=== PATIENT | female | born 1940 | race Caucasian/White ===

== ENCOUNTER 2017-07-01 10:40 | Outpatient (CLI) | payer MEDICARE | END 2017-07-01 10:41 | disposition home or self-care (01) | LOC: BICMAMMO 10:40 | PROVIDERS: ATTEND Internal Medicine | DX: Z12.31 Encounter for screening mammogram for malignant neoplasm of breast (principal) | CPT/HCPCS: 77063; 77067 ==

== ENCOUNTER 2017-10-10 11:10 | Day surgery (SDC) | payer MEDICARE ==
[2017-10-10] MEDS ORDERED: Fentanyl 100 MCG/2 ML VIAL ONE ×3 (11:40→14:28)
--- NOTE | 2017-10-10 11:56 | RAD ---
RIGHT ANKLE TWO VIEWS: History: Injury with pain. FINDINGS: There is a displaced mildly comminuted and angulated fracture of the distal fibula. There is also dis location of the tibiotalar joint and there is a fracture of the distal tibia which appears to involve the medial malleolus with displacement. IMPRESSION: Fracture dislocation at the ankle. POS: [facility]
--- NOTE | 2017-10-10 12:22 | RAD ---
RIGHT ANKLE RADIOGRAPH TWO VIEWS: Date: 10-10-17 Provided Clinical History: Post reduction. Comparison: 10-10-17 at 10:52 a.m. FINDINGS: Interval reduction of previously described right tibiotalar dislocation. Tibial and fibular fractures are again demonstrated with improved alignment. Posterior splint material is now present. IMPRESSION: As above. POS: [facility]
[2017-10-10] MEDS ORDERED: CEFAZOLIN/Water 2 GM/20 ML SYRINGE SLOW IVP SCH (13:00)
--- NOTE | 2017-10-10 13:45 | CON ---
DATE OF CONSULTATION: 10/10/2017 REQUESTING PHYSICIAN: Trauma Service. CONSULTING PHYSICIAN: Dr. Kyle Valencia. REASON FOR CONSULTATION: Right ankle dislocation fracture. HISTORY OF PRESENT ILLNESS: This is a 76-year-old female, who presented to the emergency department after a fall at home. The patient states that her leg locked up and she fell. She had an obvious de formity to the right ankle. She does report history of sensory deficits to the right lower extremity following lumbar surgeries. She states that she has trouble with her right lower leg frequently. U dave her arrival to the emergency department, she was noted to have a deformity. X-rays revealed an a nkle fracture with syndesmotic disruption and ankle dislocation. [facility] She was then placed in a posterior short leg with stirrup splint. Trauma was c onsulted for hospital admission and Orthopedic Services has been consulted for her fracture dislocati on. At bedside, the patient states that she is comfortable. She states she has normal sensation los s to her toes. She denies any other injuries at the time of the fall. She states she does live [facility] with her and normally gets around with a cane and sometimes a walker. 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 PAST SURGICAL HISTORY: Significant for cholecystectomy; hysterectomy; cervical spine surgery x2; lum bar spine surgery x2; and bilateral total knee replacements, one was done in 2003 and the other done in 2011. SOCIAL HISTORY: Patient lives with her . She denies any alcohol, tobacco, or illicit drug us e. FAMILY HISTORY: Reviewed and noncontributory. DRUG ALLERGIES: Include CODEINE with a reaction of swollen lips. PHYSICAL EXAMINATION: VITAL SIGNS: Blood pressure 145/88, pulse of 71, respiratory rate of 18, O2 saturation is 92% on mitch m air and temperature of 97.6. GENERAL: The patient is awake, alert, and oriented x3. She is in no acute distress. There is famil y at bedside in the emergency department. She is pleasant and cooperative with exam findings today. HEENT: Head is normocephalic, atraumatic. NECK: Supple. Trachea is midline. Breathing is nonlabored. EXTREMITIES: The right lower extremity was examined. There is a short leg posterior and stirrup spl int application done to the right ankle. The patient is able to actively move her toes. She reports decreased sensation. This is baseline for her. Toes are warm to touch. Capillary refill 2 seconds . SKIN: Free of lesions and rashes at splint edges. There is evidence of prior knee surgery with ante rior midline scars to both knees. Remainder of extremity exam is unremarkable. LABORATORY AND X-RAY FINDINGS: X-rays were reviewed, taken in the emergency department, including 2 views of the right ankle, taken upon presentation to the ER, showed evidence of an ankle fracture dis location, including the medial malleolus and fibula with dislocation. Post-reduction films confirmed improved alignment. There still appears to be some subluxation. There has been a splint applied. ASSESSMENT: Right ankle fracture dislocation. PLAN: Options discussed with the patient and her family today. We would like to proceed with an SHAWANDA F of the right ankle with medial and lateral hardware fixation. The patient will also need a syndesm otic screw. Risks, benefits, and alternatives discussed at length with the patient today. She verba lized understanding. These include but are not limited to, malunion, nonunion, neurovascular comprom ise, and infection. She verbalizes understanding. She is in agreeance with this plan of care. We w ill go forward with surgery this afternoon. Patient is n.p.o. and consent has been signed.
[2017-10-10] MEDS ORDERED: Bupivacaine PF 0.5% 30 ML VIAL ONE (14:10)
--- NOTE | 2017-10-10 14:10 | HP ---
REQUESTING PHYSICIAN: Dr. Zelaya ATTENDING SURGEON: Dr. Landaverde CONSULTATIONS: Orthopedics, Dr. Valencia HISTORY OF PRESENT ILLNESS: The patient is a 76-year-old woman who was walking in her home when she lost her footing and turned real quickly and had immediate pain to her right ankle. The pa tient denies shortness of breath, chest pain, dizziness, lightheadedness, or any syncopal type sympto ms prior to her falling, she just notes that she has a history of weakness of that right lower extrem ity after the spinal surgery for the last several years and it frequently gives out. At this time regi turner twisted her ankle in such a way that she immediately experienced pain and deformity. 911 was notif ied and the patient was brought to the emergency department by ground ambulance where she underwent e valuation and examination and was noted to have a right ankle fracture dislocation. The patient unde rwent a reduction in the emergency department and we were asked to evaluate the patient for admission and obtain orthopedic consultation. The patient denies any loss of consciousness, hitting her head or having any neck pain. ALLERGIES: CODEINE. CURRENT MEDICATIONS: Lyrica, Cymbalta, omeprazole. PAST MEDICAL HISTORY: Right leg peripheral neuropathy, chronic back pain, chronic neck pain, hyperte nsion, gastroesophageal reflux disease. PAST SURGICAL HISTORY: Cholecystectomy, hysterectomy, back surgery x2, neck surgery x2, bilateral kn ee replacements. SOCIAL HISTORY: The patient denies drug, tobacco or alcohol use. She currently lives at home with h er and she ambulates without a walker. FAMILY HISTORY: High blood pressure. REVIEW OF SYSTEMS: A 10 point review of systems was negative unless otherwise stated. PHYSICAL EXAMINATION: VITAL SIGNS: Blood pressure 123/80, pulse 70, respirations 18, oxygen saturation 92% on room air, te mperature is 97.7. GENERAL: The patient is currently resting comfortably in bed in the day stay area of the hospital. She is awake, alert, and oriented x3. [place] coma scale is 15. HEENT: Head is normocephalic. Eyes: Extraocular motion intact. PERRLA bilaterally. Ears are atra umatic without discharge. Nose is atraumatic without discharge. Oropharynx is clear. NECK: Nontender. Trachea is midline. No JVD. CHEST: Clear to auscultation with good inspiratory and expiratory effort. HEART: Regular rate and rhythm. ABDOMEN: Soft, flat, nontender with active bowel sounds. Pelvis is stable. EXTREMITIES: Right lower extremity is currently immobilized in and L and U type splint. She is neur ovascularly intact x4. The patient does note that she has decreased sensation in her right lower ext remity which she says is baseline. Capillary refill is less than 3 seconds. Pulses are 2+. BACK: Nontender and atraumatic. LABORATORY FINDINGS: Labs are pending at this time. RADIOGRAPHS: Views of the right ankle show a fracture dislocation of the right ankle to include frac tures of the distal tibia and fibula. The patient has post-reduction films that show improvement of her dislocation. ASSESSMENT AND PLAN: 1. Status post ground level fall. 2. Status post right ankle fracture dislocation, status post reduction. 3. History of hypertension. 4. History of hyperlipidemia. 5. History of right lower extremity neuropathy. PLAN: The plan will be to admit the patient to the surgical floor, pain control, pulmonary toilet, g astritis and mechanical VTE prophylaxis. The plan for today since the patient has been n.p.o. since this morning is she will undergo her opera tive procedure today according to Dr. Valencia. The patient will begin physical and occupational the rapy tomorrow and we will start VTE prophylaxis, likely tomorrow or as late as the following day. The evaluation, examination, laboratory and radiographic findings were discussed with Dr. Landaverde at th e time of dictation.
[2017-10-10] MEDS ORDERED: CEFAZOLIN/Water 2 GM/20 ML SYRINGE ONE (14:12)
[2017-10-10] MEDS ORDERED: Ketorolac Tromethamine 30 MG/ML VIAL ONE (14:30)
[2017-10-10] MEDS ORDERED: Lidocaine 1% PF 5 ML VIAL ONE (14:30)
[2017-10-10] MEDS ORDERED: Dexamethasone 20 MG/5 ML VIAL ONE (14:30)
[2017-10-10] MEDS ORDERED: Ondansetron HCl/PF 4 MG/2 ML Vial ONE (14:30)
[2017-10-10] MEDS ORDERED: PROPOFOL 200 MG/20 ML VIAL ONE (14:30)
[2017-10-10] MEDS ORDERED: PHENYLEPHRINE-NS 100 MCG/ML 10 ML SYRINGE ONE (14:30)
[2017-10-10] MEDS ORDERED: Midazolam HCl 2 mg/2 ml Vial ONE (14:31)
[2017-10-10] MEDS ORDERED: Ketamine 50 MG/ML VIAL ONE (14:38)
--- NOTE | 2017-10-10 16:06 | RAD ---
RIGHT ANKLE 3 VIEWS: HISTORY: ORIF right ankle. FINDINGS: Three spot fluoroscopic intraoperative images of the right ankle demonstrate interval reduction and i nternal fixation of distal tibial and fibular fractures noted on earlier exam of 11:06 a.m. from the same date. Anatomic alignment has been restored. POS: [facility]
[2017-10-10] MEDS ORDERED: Ondansetron HCl/PF 4 MG/2 ML Vial IVP PRN ×2 (17:03→17:36)
[2017-10-10] MEDS ORDERED: Promethazine HCl 25 MG/ML VIAL SLOW IVP PRN (17:03)
[2017-10-10] MEDS ORDERED: Ketorolac Tromethamine 30 MG/ML VIAL IVP PRN (17:03)
[2017-10-10] MEDS ORDERED: Promethazine HCl 25 MG/ML VIAL IM PRN (17:03)
[2017-10-10] MEDS ORDERED: Dextrose 5% in Water 1,000 ML IV PRN (17:36)
[2017-10-10] MEDS ORDERED: hydrALAZINE 20 MG/ML VIAL SLOW IVP PRN (17:36)
[2017-10-10] MEDS ORDERED: Dextrose 50% Abboject 50 ML SYRINGE SLOW IVP PRN (17:36)
[2017-10-10] MEDS ORDERED: Ondansetron ODT 4 MG TAB PO PRN (17:36)
[2017-10-10] MEDS ORDERED: Sodium Chloride 0.9% 1,000 ML IV SCH (17:36)
--- NOTE | 2017-10-10 17:39 | OP ---
DATE OF PROCEDURE: 10/10/2017 PREOPERATIVE DIAGNOSIS: Right trimalleolar ankle fracture dislocation. POSTOPERATIVE DIAGNOSIS: Right trimalleolar ankle fracture dislocation. SURGICAL PROCEDURE: Open reduction and internal fixation of right medial and lateral malleoli. ANESTHESIA: General. SURGEON: Kyle Valencia M.D. HORSE RIDER: Stephanie Miner PA-C TOURNIQUET TIME: 66 minutes at 300 mmHg. IMPLANTS: Synthes 3.5 mm nonlocking set with a 10-hole one-third tubular plate and a combination of 3.5 mm cortical screws and 4.0 mm cancellous screws. COMPLICATIONS: None. DRAINS: None. SPECIMEN: None. OUTCOME: Near anatomic alignment. INDICATIONS: The patient is a pleasant 76-year-old lady status post trip and fall sustaining a twist ing injury to her right ankle with fracture-dislocation. The dislocation was reduced in the emergenc y room; however, the patient is found to have widely displaced and comminuted lateral malleolus and a displaced medial malleolar fracture. As such, patient is now taken to the operating room for open r eduction and internal fixation. Informed consent has been obtained. I believe all questions have be en answered. PROCEDURE: The patient was brought to the operating room and a timeout performed followed by inducti on of general anesthesia. The patient was then positioned supine on the OR table and a sterile prep and drape was performed of the right lower extremity. The limb was then exsanguinated with Esmarch b andage, tourniquet inflated to 300 mmHg. A lateral incision was made from the tip of the lateral mal leolus heading proximally. After skin was sharply incised, dissection was carried down bluntly to th e underlying fractured fibula and lateral malleolus. Using minimal subperiosteal dissection, the fra cture edges were freed of soft tissue and the fracture hematoma lavaged from the wound. Next, fractu re was reduced and held in place with bone tenaculums. Two interfragmentary compression screws were then applied in standard fashion to secure a large butterfly fragment in place. This was followed by application of a 10-hole 1/3 tubular neutralization plate along the lateral cortex of the distal fib hong. This was held in place with cancellous screws distally and cortical screws proximally getting a natomic alignment. Once fixed, under C-arm guidance, the mortise was stressed and there was found to be no opening of the mortise and felt to be a stable distal tib-fib joint. Next, attention was plac ed medially. A second incision was made centered over the medial malleolus after skin was sharply in cised, dissection was carried down bluntly to the underlying fracture. Again, the fracture edges ever ed of soft tissue and the hematoma lavaged from the wound. The fracture was then reduced and held in place with a bone tenaculum. Next, two 4.5 mm partially threaded cancellous screws were passed from the tip of the medial malleolus obliquely across the fracture and into the distal tibial metaphyseal bone. This resulted in anatomic alignment of the medial malleolus. AP, lateral and mortise x-rays of the ankle were obtained and these were saved in the operating room. Next, 2 wounds were irrigated with normal saline. Then, 10 mL injected of 0.5% Marcaine at the medial wound and 20 at the lateral side. The wound was then closed in layers with 0 Vicryl, 2-0 Vicryl, and pete for the skin. Xer oform gauze, Webril, and fiberglass posterior splint was applied to the ankle. Tourniquet was let do wn with total time of 66 minutes. There were no complications. Patient tolerated the procedure well .
[2017-10-10 19:28] VITALS: BMI 37.8
[2017-10-10] MEDS ORDERED: traMADol HCl 50 MG TAB PO PRN ×2 (20:17)
[2017-10-10] MEDS: Acetaminophen 500 MG TAB PO SCH (20:48)
[2017-10-10] MEDS: Ibuprofen 800 MG TAB PO SCH (20:48)
[2017-10-10] MEDS ORDERED: Famotidine 20 MG TAB PO SCH (21:00)
[2017-10-10] MEDS: CEFAZOLIN/Water 2 GM/20 ML SYRINGE SLOW IVP SCH (21:59)
[2017-10-11] MEDS: Acetaminophen 500 MG TAB PO SCH ×3 (02:40→16:29)
[2017-10-11] MEDS: Ibuprofen 800 MG TAB PO SCH ×2 (04:06→13:20)
[2017-10-11 06:11] LABS: Anion Gap 11 mmol/L (10-20); BUN (Urea Nitrogen) 10 mg/dL (9.8-20.1); Calc. Creatinine Clearance 104 mL/min (70-130); Calcium 9.3 mg/dL (7.8-10.44); Carbon Dioxide 30 mmol/L (23-31); Chloride 103 mmol/L (98-107); Estimated GFR-MDRD 89; Glucose 121 mg/dL (83-110); Magnesium 2.1 mg/dL (1.6-2.6); Phosphorus 4.6 mg/dL (2.3-4.7); Potassium 4.5 mmol/L (3.5-5.1); Sodium 139 mmol/L (136-145)
[2017-10-11 06:13] LABS: #Lymphocytes 1.1 thou/uL (1.20-3.40); #Monocytes 0.5 thou/uL (0.11-0.59); #Neutrophils 6.8 thou/uL (1.40-6.50); %Eosinophils 0.1 % (0.0-10.0); %Lymphocytes 12.7 % (21.0-51.0); %Monocytes 6.1 % (0.0-10.0); Hemoglobin 13.3 g/dL (12.0-16.0); Mean Corpuscular HGB CONC 32.4 g/dL (32.0-36.0); Mean Corpuscular Hemoglobin 29.8 pg (27.0-31.0); Mean Corpuscular Volume 92.2 fL (78.0-98.0); Mean Platelet Volume 7.6 fL (7.4-10.4); Platelet Count 157 thou/uL (130-400); RBC Distribution Width 13.6 % (11.5-14.5); Red Blood Cell (RBC) Count 4.47 mill/uL (4.20-5.40); White Blood Cell (WBC) Count 8.4 thou/uL (4.8-10.8)
[2017-10-11] MEDS: CEFAZOLIN/Water 2 GM/20 ML SYRINGE SLOW IVP SCH (06:23)
[2017-10-11] MEDS ORDERED: Pregabalin 50 MG CAP PO SCH (09:00)
[2017-10-11] MEDS ORDERED: DULoxetine 60 MG CAP PO SCH (09:00)
[2017-10-11 16:17] VITALS: BP 108/69; TEMP 97.9
--- NOTE | 2017-10-12 06:50 | DIS ---
DATE OF ADMISSION: 10/10/2017 DATE OF DISCHARGE: 10/11/2017 ADMISSION DIAGNOSES: 1. Status post ground level fall. 2. Right ankle fracture/dislocation. 3. Acute traumatic pain. 4. History of hypertension. 5. History of hyperlipidemia. 6. History of right lower extremity neuropathy. DISCHARGE DIAGNOSES: 1. Status post ground level fall. 2. Right ankle fracture/dislocation. 3. Acute traumatic pain. 4. History of hypertension. 5. History of hyperlipidemia. 6. History of right lower extremity neuropathy. CONSULTANTS: Dr. Valencia, Orthopedic Surgery. PROCEDURES: 10/10/2017, open reduction internal fixation right trimalleolar ankle fracture/ dislocat ion with Dr. Valencia. HOSPITAL COURSE: Pratima Low is a 76-year-old female who presented to [place] [facility] status post m echanical fall. She was evaluated in the emergency room and found to have the above injuries. She u nderwent operative intervention to those injuries on the date of admission. Postop day 1, the patien t was doing well. She was able to mobilize with physical therapy. Pain was controlled via p.o. anal gesics. She was tolerating a general diet. Given the patient's history of right lower extremity wea kness and neuropathy she was offered the choice between inpatient rehabilitation evaluation and home with home health. The patient elected to be discharged home with the assistance of home health. DISCHARGE DISPOSITION: Home. DISCHARGE CONDITION: Fair. PHYSICAL EXAMINATION: VITAL SIGNS: Temperature 97.9, pulse 79, respiration 16, O2 sat 93% on room air, blood pressure 108/ 69. GENERAL: Well-developed elderly female in no acute distress, resting in bed. PULMONARY: Normal work of breathing, symmetric rise. CARDIOVASCULAR: Regular rate and rhythm. GASTROINTESTINAL: Abdomen is soft, nontender, nondistended. MUSCULOSKELETAL: Moves all extremities. NEUROLOGIC: No focal deficit noted. DISCHARGE INSTRUCTIONS: Discharge instructions were provided to the patient who vocalized her unders tanding. She is nonweightbearing on the right lower extremity. She should keep her orthopedic dress ing clean, dry, and intact. DISCHARGE MEDICATIONS: The patient was discharged home on her home medication regimen with the addit ion of aspirin 81 mg p.o. b.i.d. and [id number] Tylenol and ibuprofen and Ultram 50 mg 1-2 tabs q.6 hours p.r.n. for severe pain. FOLLOWUP APPOINTMENTS: The patient should follow up with her primary care provider as needed. She i s to follow up with Orthopedic Surgery in 10-14 days. She does not need to follow up with Trauma Ser vicemanda or Dr. Landaverde formally, but may call our office with any questions. This is merely a summary of the patient's hospitalization. For more in depth information, please see her medical record in its entirety.
== END 2017-10-11 18:10 | disposition home or self-care (01) ==
LOC: ERS 11:10 → SDC 12:59 → SJJU 16:48 → SDC 10-11 18:10
PROVIDERS: ATTEND Orthopaedic Surgery
PROC: 0QSG04Z Reposition Right Tibia with Internal Fixation Device, Open Approach (ICD-10-PCS; principal; 2017-10-10)
PROC: 0QSJ04Z Reposition Right Fibula with Internal Fixation Device, Open Approach (ICD-10-PCS; 2017-10-10)
DX: S82.851A Displaced trimalleolar fracture of right lower leg, initial encounter for closed fracture (principal); G89.29 Other chronic pain; M54.2 Cervicalgia; K21.9 Gastro-esophageal reflux disease without esophagitis; I10 Essential (primary) hypertension; W18.30XA Fall on same level, unspecified, initial encounter; Z88.5 Allergy status to narcotic agent
CPT/HCPCS: 27814; 27818; 73600; 73610; 76001; 80048; 83735; 84100; 85025; 96374; 97116; 97139; 97535; 99285; C1713 ×4; G8978; G8979; G8987; G8988; 36415; G0390; J1100; J1885; J2001; J2250; J2405; J2704; J3010; S0020

== ENCOUNTER 2018-07-07 10:01 | Outpatient (CLI) | payer MEDICARE ==
--- NOTE | 2018-07-07 11:58 | MMO ---
Bilateral MAMMO Bilat Screen [facility]DI+GISSEL. CLINICAL HISTORY: Patient is 77 years old and is seen for screening. The patient has no family history of breast cancer. The patient has no personal history of cancer. VIEWS: The views performed were: bilateral craniocaudal with tomosynthesis and bilateral mediolateral oblique with tomosynthesis. FILMS COMPARED: The present examination has been compared to prior imaging studies performed at [facility] on 10/02/1997, 03/31/1999, 03/31/2000, 04/10/2001, 04/10/2002, 03/25/2003, 03/25/2004, 03/26/2005, 09/02/2006, 09/15/2007, 09/16/2008, 11/19/2009, 12/09/2010, 12/15/2011, 06/11/2015, 06/16/2016 and 07/01/2017. MAMMOGRAM FINDINGS: There are scattered fibroglandular densities. Benign calcifications are noted bilaterally. There are no suspicious masses, suspicious calcifications, or new areas of architectural distortion. IMPRESSION: THERE IS NO MAMMOGRAPHIC EVIDENCE OF MALIGNANCY. A ROUTINE FOLLOW-UP MAMMOGRAM IN 1 YEAR IS RECOMMENDED. THE RESULTS OF THIS EXAM WERE SENT TO THE PATIENT. ACR BI-RADS Category 2 - Benign finding MAMMOGRAPHY NOTE: 1. A negative mammogram report should not delay a biopsy if a dominant of clinically suspicious mass is present. 2. Approximately 10% to 15% of breast cancers are not detected by mammography. 3. Adenosis and dense breasts may obscure an underlying neoplasm.
== END 2018-07-07 10:02 | disposition home or self-care (01) ==
LOC: BICMAMMO 10:01
PROVIDERS: ATTEND Internal Medicine
DX: Z12.31 Encounter for screening mammogram for malignant neoplasm of breast (principal)
CPT/HCPCS: 77063; 77067

== ENCOUNTER 2019-01-27 06:36 | Inpatient (IN) | payer MEDICARE ==
[2019-01-27 07:41] LABS: #Eosinphils 0.1 thou/uL (0.0-0.7); #Lymphocytes 1.3 thou/uL (1.20-3.40); #Monocytes 0.5 thou/uL (0.11-0.59); #Neutrophils 4.6 thou/uL (1.40-6.50); %Basophils 0.1 % (0.0-1.0); %Eosinophils 1.5 % (0.0-10.0); %Lymphocytes 20.3 % (21.0-51.0); %Monocytes 7.7 % (0.0-10.0); %Neutrophils 70.4 % (42.0-75.0); Hemoglobin 14.8 g/dL (12.0-16.0); Mean Corpuscular HGB CONC 32.1 g/dL (32.0-36.0); Mean Corpuscular Hemoglobin 28.1 pg (27.0-31.0); Mean Corpuscular Volume 87.7 fL (78.0-98.0); Mean Platelet Volume 7.8 fL (7.4-10.4); Platelet Count 146 thou/uL (130-400); RBC Distribution Width 14.9 % (11.5-14.5); Red Blood Cell (RBC) Count 5.27 mill/uL (4.20-5.40); White Blood Cell (WBC) Count 6.6 thou/uL (4.8-10.8)
[2019-01-27] MEDS ORDERED: Fentanyl 100 MCG/2 ML VIAL ONE (07:58)
[2019-01-27] MEDS ORDERED: Ondansetron PF 4 MG/2 ML Vial ONE (07:58)
[2019-01-27 08:03] LABS: ALT (SGPT) 17 U/L (8-55); AST (SGOT) 29 U/L (5-34); Albumin 3.8 g/dL (3.4-4.8); Alkaline Phosphatase 109 U/L (40-110); Anion Gap 13 mmol/L (10-20); BUN (Urea Nitrogen) 6 mg/dL (9.8-20.1); Calc. Creatinine Clearance 0 mL/min (70-130); Calcium 9.1 mg/dL (7.8-10.44); Carbon Dioxide 28 mmol/L (23-31); Chloride 96 mmol/L (98-107); Estimated GFR-MDRD 85; Glucose 98 mg/dL (83-110); Lipase 6 U/L (8-78); Potassium 4.4 mmol/L (3.5-5.1); Protein, Total 6.8 g/dL (6.0-8.3); Sodium 133 mmol/L (136-145)
--- NOTE | 2019-01-27 08:49 | CT ---
CT ANGIOGRAM THORAX WITH CONTRAST: (CTA pulmonary angiogram) DATE: 01/27/2019 HISTORY: 78-year-old female with chest pain TECHNIQUE: IV injection of iodinated contrast. Scan acquisition timing attempted to coincide with iodinated contrast bolus reaching maximal density in pulmonary arteries. 3-D MIP reconstructions. FINDINGS: Ectasia and tortuosity of thoracic aorta. No aortic dissection. Ectasia of pulmonic trunk, left and r ight pulmonary arteries, and there branches. Elevated right hemidiaphragm. Nonspecific diffuse bilateral heterogeneously distributed groundglass densities. No consolidation, pleural effusion, or p neumothorax. No high-grade stenosis or occlusion of trachea and bilateral mainstem bronchi. Mild cardiomegaly. No pericardial effusion. No moderate sized or large hiatal hernia. Multilevel degenerat grace disc disease throughout thoracic spine. No pulmonary thromboembolism identified. No mediastinal or significant hilar lymphadenopathy. IMPRESSION: 1) no evidence of pulmonary thromboembolism. 2) ectasia of pulmonary arteries. 3) ectasia of thoracic aorta.
[2019-01-27] MEDS ORDERED: cefTRIAXone\\ROCEPHIN 1 GM VIAL ONE (09:33)
[2019-01-27] MEDS ORDERED: Azithromycin 500 MG VIAL ONE (10:20)
[2019-01-27] MEDS ORDERED: Ondansetron ODT 4 MG TAB PO PRN (11:00)
[2019-01-27] MEDS ORDERED: Ondansetron PF 4 MG/2 ML Vial IVP PRN ×2 (11:00→21:20)
[2019-01-27] MEDS ORDERED: Acetaminophen 325 MG TAB PO PRN ×2 (11:01→14:43)
[2019-01-27 12:04] VITALS: BMI 37.0
[2019-01-27] MEDS ORDERED: ISOVUE-370 76%-LOCM 1 ML ONE (12:34)
[2019-01-27] MEDS ORDERED: Calcium Carbonate 500 MG ChewTAB PO PRN (14:43)
[2019-01-27] MEDS ORDERED: Senokot S 8.6-50 MG TAB PO PRN (14:43)
[2019-01-27] MEDS ORDERED: Guaifenesin DM 100-10/5 ML UDCUP PO PRN (14:43)
[2019-01-27] MEDS ORDERED: Bisacodyl 10 MG SUPP PR PRN (14:43)
[2019-01-27] MEDS ORDERED: Morphine 2 MG/ML SYRINGE SLOW IVP PRN (14:43)
--- NOTE | 2019-01-27 16:08 | HP ---
REASON FOR ADMISSION: Possible pneumonia, possible volume overload. HISTORY OF PRESENTING ILLNESS: The patient gives a history of abdominal discomfort in the epigastric area, which got worse from Tuesday. She had gone to see Dr. Liam Cherry, her primary care physician, and had a CAT scan done at [facility]. This apparently revealed hiatal hernia. She has also had a flu shot. She has some dry cough, but no expectoration as such. No fever at home. As epigastric pain got worse, she came to emergency room here. The patient had a CT angio chest done, which showed no evidence of PE, but ectasia of pulmonary arteries and thoracic aorta. Also, the patient required oxygen to keep her saturations above 90%. When she initially came, her saturations were 89% on room air. No complaints of chest pain or palpitation. The patient normally ambulates inside the house. She has history of osteoarthritis and that limits her mobilization. PAST MEDICAL AND SURGICAL HISTORY: History of osteoarthritis, chronic back pain , GERD, possible hiatal hernia. We will try to obtain her current CAT scan results of the abdomen from [facility]. Cholecystectomy, hysterectomy, neck surgery , back surgery in January of 2014. She has had a stress test done more than 10 years ago, which was normal as far as she remembers. The patient also had history of diverticulitis and bronchitis a month back and was given seven days of antibiotics by her primary care physician. CURRENT MEDICATION: 1. Lyrica 50 mg p.o. daily. 2. Cymbalta 60 mg p.o. daily. ALLERGIES: ALLERGIC TO CODEINE. PERSONAL HISTORY: Does not abuse alcohol or drugs. No history of smoking. Lives with her . FAMILY HISTORY: Mother of stroke at the age of 70 years. Father of lung cancer and its complications at the age of 55 years. CODE STATUS: Full. POWER OF WIRELESS TEAM MEMBER: Her . REVIEW OF SYSTEMS: CONSTITUTIONAL: Negative for weight loss or gain, ability to conduct usual activities. SKIN: Negative for rash, itching. EYES: Negative for double vision, pain. ENT/MOUTH: Negative for nose bleeding, neck stiffness, pain, tenderness. CARDIOVASCULAR: Negative for palpitations, dyspnea on exertion, orthopnea. RESPIRATORY: Negative for shortness of breath, wheezing, cough, hemoptysis, fever or night sweats. GASTROINTESTINAL: Negative for poor appetite, abdominal pain, heartburn, nausea , vomiting, constipation, or diarrhea. GENITOURINARY: Negative for urgency, frequency, dysuria, nocturia. MUSCULOSKELETAL: Negative for pain, swelling. NEUROLOGIC/PSYCHIATRIC: Negative for anxiety, depression. ALLERGY/IMMUNOLOGIC: Negative for skin rash, bleeding tendency. PHYSICAL EXAMINATION: GENERAL: The patient is a 78-year-old female who is currently not in any acute distress. VITAL SIGNS: Blood pressure 140/90, pulse 80 per minute, respiratory rate 20 per minute, temperature 97.7 degrees Fahrenheit, saturating 89% on room air and 94% on 4 L nasal cannula. NECK: Supple. No elevated JVD. HEENT: Eyes; extraocular muscles intact. Pupils reacting to light. Oral cavity; mucous membranes are moist. No exudates or congestion. CARDIOVASCULAR SYSTEM: S1, S2 heard. Regular rhythm. RESPIRATORY SYSTEM: Air entry 1+ bilateral. No rales or rhonchi. ABDOMEN: Soft. Bowel sounds heard. Mild tenderness in the epigastric area and no rigidity or guarding. EXTREMITIES: No peripheral edema or calf tenderness. VASCULAR SYSTEM: Peripheral pulses 1+ bilateral. No ischemic ulcerations or gangrene. CENTRAL NERVOUS SYSTEM: No gross focal deficits noted. The patient is alert, awake, and oriented well. PSYCHIATRIC SYSTEM: The patient's mood is euthymic. No hallucinations or delusions. LABORATORY DATA: CT angio chest done shows no evidence of PE. There is ectasia of pulmonary arteries and thoracic aorta. Sodium 133, bicarb 28, BUN 6, creatinine 0.6, glucose 98. Liver enzymes within normal limits. Troponin I 0.01. BNP 254. Liver enzymes within normal limits. Albumin 3.8. Lipase is 6. White count of 6, H and H 14 and 48, platelet count 146 with 70% neutrophils. We will try to obtain a 12-lead EKG on her. CLINICAL IMPRESSION AND PLAN: The patient will be admitted to medical floor for suspected pneumonia versus poor ventilatory effort with history of hiatal hernia and obesity. We will empirically place her on Levaquin, DuoNeb q.6 hourly, and steroids. We will also obtain a Pulmonary consultation with Dr. Vilchis. Echo with 2D Doppler for LV function will be obtained. We will continue her Lyrica and Cymbalta as before. She will be on Protonix 40 mg p.o. daily and morphine p.r.n. for pain. Further workup will be based on the results from her recent CAT scan, which will be obtained from [facility], likely Tuesday due to the weekend. We will obtain PT/OT evaluations and ambulate her. Please note, the patient also had a history of bronchitis a month back and was on antibiotics for seven days. She has some hazy changes on her CAT scan, although no lobar consolidation was noted. We will continue to closely monitor her on medical floor. Job ID: [id number] [facility]
[2019-01-27] MEDS: Levofloxacin 750 mg/D5W 500 MG in Premix Bag 1 BAG IVPB SCH (16:25)
[2019-01-27] MEDS ORDERED: Fentanyl 100 MCG/2 ML VIAL SLOW IVP SCH (21:30)
[2019-01-27] MEDS: methylPREDNISolone Sod Succ 40 MG VIAL IVP SCH (21:32)
[2019-01-28] MEDS: methylPREDNISolone Sod Succ 40 MG VIAL IVP SCH ×3 (05:26→21:31)
[2019-01-28 06:04] LABS: #Eosinphils 0.1 thou/uL (0.0-0.7); #Lymphocytes 0.5 thou/uL (1.20-3.40); #Monocytes 0.1 thou/uL (0.11-0.59); #Neutrophils 4.5 thou/uL (1.40-6.50); %Eosinophils 1.2 % (0.0-10.0); %Lymphocytes 9.3 % (21.0-51.0); %Monocytes 1.8 % (0.0-10.0); %Neutrophils 87.7 % (42.0-75.0); Hemoglobin 14.2 g/dL (12.0-16.0); Mean Corpuscular HGB CONC 32.6 g/dL (32.0-36.0); Mean Corpuscular Hemoglobin 28.9 pg (27.0-31.0); Mean Corpuscular Volume 88.8 fL (78.0-98.0); Mean Platelet Volume 8.6 fL (7.4-10.4); Platelet Count 152 thou/uL (130-400); RBC Distribution Width 14.9 % (11.5-14.5); Red Blood Cell (RBC) Count 4.92 mill/uL (4.20-5.40); White Blood Cell (WBC) Count 5.1 thou/uL (4.8-10.8)
[2019-01-28 06:19] LABS: Anion Gap 13 mmol/L (10-20); BUN (Urea Nitrogen) 8 mg/dL (9.8-20.1); Calc. Creatinine Clearance 89 mL/min (70-130); Calcium 9.1 mg/dL (7.8-10.44); Carbon Dioxide 31 mmol/L (23-31); Chloride 99 mmol/L (98-107); Estimated GFR-MDRD 71; Glucose 124 mg/dL (83-110); Potassium 4.6 mmol/L (3.5-5.1); Sodium 138 mmol/L (136-145)
[2019-01-28] MEDS: DULoxetine 60 MG CAP PO SCH (09:03)
[2019-01-28] MEDS: Pregabalin 50 MG CAP PO SCH (09:03)
[2019-01-28] MEDS: Enoxaparin Sodium 40 MG/0.4 ML SYRINGE SC SCH (09:04)
--- NOTE | 2019-01-28 13:32 | CON ---
DATE OF CONSULTATION: HISTORY OF PRESENT ILLNESS: Pratima Low is a 78-year-old morbidly obese female, lifelong nonsmoker, 92 kg, presented with abdominal and epigastric pain. She saw a primary care physician 7 weeks ago with diverticulitis and bronchitis. She was given some antibiotics. She says she has had history of bronchitis and asthma off and on for many years since childhood. No history of TB. She has limitation of activity and mostly can barely walk a block without getting markedly short of breath. No fever or chills. Sputum is relatively clear. PAST MEDICAL HISTORY: Otherwise, pertinent for snoring, but no history of witnessed apnea. History of significant arthritis with multiple surgeries causing disability, history of chronic pain, and history of hypertension. PAST SURGICAL HISTORY: Two neck fusion, 2 back surgeries, cholecystectomy, hysterectomy, knee surgery, leg surgery, and broken back. HOME MEDICATIONS: 1. Lyrica 50. 2. Cymbalta 60. ALLERGIES: CODEINE. SOCIAL AND FAMILY HISTORY: Unremarkable, possibly sleep apnea. REVIEW OF SYSTEMS: Ten-point negative. PHYSICAL EXAMINATION: VITAL SIGNS: Saturations are 91% on room air and 95% on 4 L, temperature 97, pulse 84, and blood pressure 120/73. CHEST: No wheezing or crackles. CARDIAC: Normal S1 and S2. No gallops. ABDOMEN: No masses. LABORATORY DATA: White count is normal. IMPRESSION: 1. Atypical pneumonia, maybe bronchiolitis obliterans organizing pneumonia. 2. Abdominal pain, probably diverticulitis. 3. Morbid obesity. 4. Depression. 5. Chronic pain. PLAN: I have added low-dose steroids to her present regime. Continue supportive care, PT. We will follow. Follow up x-ray in the next 24 to 48 hours. Consultation note, 70 minutes, 50% direct patient care. Job ID: [id number]
--- NOTE | 2019-01-28 13:45 | PDOC.HOSPP ---
- Subjective Encounter Date: 01/28/19 Encounter Time: 12:30 Subjective: abd pain is better, no sob is amb in room at bedside - Objective Vital Signs & Weight: Vital Signs (12 hours) Temp Pulse Resp BP Pulse Ox 01/28/19 13:31 97 16 97 01/28/19 08:00 95 01/28/19 07:30 97.9 F 84 20 122/73 91 L 01/28/19 06:31 95 16 96 01/28/19 04:00 97.4 F L 104 H 21 H 126/80 95 Weight Weight 209 lb 8 oz I&O: 01/27/19 01/28/19 01/29/19 06:59 06:59 06:59 Intake Total 830 Balance 830 Result Diagrams: 01/28/19 05:41 01/28/19 05:41 Hospitalist ROS - Medication Medications: Active Medications Generic Name Dose Route Start Last Admin Trade Name Freq PRN Reason Stop Dose Admin Albuterol/Ipratropium 3 ml 01/27/19 19:00 01/28/19 13:31 Duoneb NEB 3 ml [id number] Administration Duloxetine HCl 60 mg 01/28/19 09:00 01/28/19 09:03 Cymbalta PO 60 mg DAILY MAYELA Administration Enoxaparin Sodium 40 mg 01/28/19 09:00 01/28/19 09:04 Lovenox SC 40 mg 0900 MAYELA Administration Levofloxacin 500 mg/ Device 100 mls @ 100 mls/hr 01/27/19 16:00 01/27/19 16: 25 IVPB 100 mls 1600 MAYELA Administration Methylprednisolone Sodium Succinate 20 mg 01/27/19 22:00 01/28/19 05:26 Solu-Medrol IVP 20 mg Q8HR MAYELA Administration Ondansetron HCl 4 mg 01/27/19 21:20 01/27/19 21:35 Zofran IVP 4 mg Q6H PRN Administration Nausea/Vomiting Pantoprazole Sodium 40 mg 01/28/19 09:00 01/28/19 09:03 Protonix PO 40 mg DAILY MAYELA Administration Pregabalin 50 mg 01/28/19 09:00 01/28/19 09:03 Lyrica PO 50 mg DAILY MAYELA Administration - Exam General Appearance: awake alert Eye: PERRL, anicteric sclera ENT: no oropharyngeal lesions, moist mucosa Neck: supple, no JVD Heart: RRR, no murmur Respiratory: no wheezes, no rales Gastrointestinal: soft, non-tender, non-distended, normal bowel sounds Extremities: no cyanosis, no edema Neurological: cranial nerve grossly intact, no focal deficits Psychiatric: normal affect, A&O x 3 Hosp A/P (1) Bronchopneumonia Code(s): J18.0 - BRONCHOPNEUMONIA, UNSPECIFIED ORGANISM Status: Suspected (2) Obesity (BMI 30-39.9) Code(s): E66.9 - OBESITY, UNSPECIFIED Status: Chronic (3) Osteoarthritis Code(s): M19.90 - UNSPECIFIED OSTEOARTHRITIS, UNSPECIFIED SITE Status: Chronic Qualifiers: Osteoarthritis location: multiple joints Osteoarthritis type: primary Qualified Code(s): M15.0 - Primary generalized (osteo)arthritis (4) Depression Code(s): F32.9 - MAJOR DEPRESSIVE DISORDER, SINGLE EPISODE, UNSPECIFIED Status : Chronic Qualifiers: Depression Type: major depressive disorder Major depression episode severity: mild (5) H/O diverticulitis of colon Code(s): Z87.19 - PERSONAL HISTORY OF OTHER DISEASES OF THE DIGESTIVE SYSTEM Status: Chronic - Plan is on nebs, steroids, levaquin await ct abd results [place] [facility] [place] ?hiatal hernia was seen on the CT per family prior h/o lap daya continue cymbalta and lyrica, morphine prn for pain
[2019-01-28] MEDS: Levofloxacin 750 mg/D5W 500 MG in Premix Bag 1 BAG IVPB SCH (14:42)
[2019-01-28] MEDS: Mometasone/Formoterol 120 PUFF INHALER INH SCH (18:23)
[2019-01-29] MEDS: methylPREDNISolone Sod Succ 40 MG VIAL IVP SCH (05:35)
[2019-01-29 05:39] LABS: #Lymphocytes 0.8 thou/uL (1.20-3.40); #Monocytes 0.5 thou/uL (0.11-0.59); #Neutrophils 5.8 thou/uL (1.40-6.50); %Basophils 0.1 % (0.0-1.0); %Eosinophils 0.2 % (0.0-10.0); %Lymphocytes 11.5 % (21.0-51.0); %Monocytes 6.7 % (0.0-10.0); %Neutrophils 81.5 % (42.0-75.0); Hemoglobin 14.2 g/dL (12.0-16.0); Mean Corpuscular HGB CONC 31.9 g/dL (32.0-36.0); Mean Corpuscular Hemoglobin 28.8 pg (27.0-31.0); Mean Corpuscular Volume 90.4 fL (78.0-98.0); Mean Platelet Volume 8.2 fL (7.4-10.4); Platelet Count 153 thou/uL (130-400); Red Blood Cell (RBC) Count 4.93 mill/uL (4.20-5.40); White Blood Cell (WBC) Count 7.1 thou/uL (4.8-10.8)
[2019-01-29 05:54] LABS: Anion Gap 9 mmol/L (10-20); BUN (Urea Nitrogen) 12 mg/dL (9.8-20.1); Calc. Creatinine Clearance 102 mL/min (70-130); Calcium 9.4 mg/dL (7.8-10.44); Carbon Dioxide 33 mmol/L (23-31); Chloride 98 mmol/L (98-107); Estimated GFR-MDRD 82; Glucose 129 mg/dL (83-110); Potassium 4.7 mmol/L (3.5-5.1); Sodium 135 mmol/L (136-145)
[2019-01-29] MEDS: Mometasone/Formoterol 120 PUFF INHALER INH SCH ×2 (06:37→18:11)
[2019-01-29] MEDS: DULoxetine 60 MG CAP PO SCH (08:53)
[2019-01-29] MEDS: Pregabalin 50 MG CAP PO SCH (08:54)
[2019-01-29] MEDS: Enoxaparin Sodium 40 MG/0.4 ML SYRINGE SC SCH (08:54)
--- NOTE | 2019-01-29 10:26 | RAD ---
RADIOGRAPH CHEST 2 VIEWS: Date: 01/29/19 Time: 0835 hours HISTORY: 78-year-old female with congestive heart failure. COMPARISON: 12/22/18. FINDINGS: Elevated right hemidiaphragm. Ectasia and tortuosity of thoracic aorta. Borderline or mild cardiomega ly. Diffuse prominent interstitial markings. Prominent pulmonary vessels diffusely. No pneumothorax o r consolidation. No pleural effusion. No interval change. IMPRESSION: 1. Pulmonary venous congestion (mild congestive heart failure) versus pulmonary arterial hypertensio n. 2. Ectasia and tortuosity of thoracic aorta. 3. Chronically elevated right hemidiaphragm. JN [] POS: TPC
--- NOTE | 2019-01-29 11:08 | PRG ---
DATE OF SERVICE: 01/29/2019 SUBJECTIVE: She is much better this morning, less cough, less shortness of breath. OBJECTIVE: VITAL SIGNS: Saturations are 90% on 2 L, temperature 97, pulse 90, respirations 16, blood pressure 125/81. CHEST: No wheezing. CARDIAC: Normal S1, S2. No gallops. ABDOMEN: No masses. BNP is only 208. Chest x-ray shows some increased markings, but no obvious infiltrates. ASSESSMENT: Asthmatic bronchitis and morbid obesity. PLAN: Switch over to oral medication. Hopefully, she can be discharged home in the next 24-48 hours. Job ID: [id number]
--- NOTE | 2019-01-29 11:47 | PDOC.HOSPP ---
- Subjective Encounter Date: 01/29/19 Encounter Time: 11:46 Subjective: Patient seen and examined for Pneumonia/Bronchitis. On O2 2 lit. No cough/ wheezing. No new complaints. No overnight events - Objective Vital Signs & Weight: Vital Signs (12 hours) Temp Pulse Resp BP Pulse Ox 01/29/19 08:55 95 01/29/19 08:51 96 16 94 L 01/29/19 08:00 97.4 F L 91 16 125/81 95 01/29/19 06:39 91 16 01/29/19 03:54 97.4 F L 89 22 H 147/81 H 90 L 01/29/19 00:10 97.8 F 76 16 132/80 91 L 01/29/19 00:04 85 16 93 L Weight Weight 209 lb 8 oz I&O: 01/28/19 01/29/19 01/30/19 06:59 06:59 06:59 Intake Total 830 Balance 830 Result Diagrams: 01/29/19 04:53 01/29/19 04:53 Radiology Reviewed by me: No (CT abd from [facility] - Ventral hernia) Hospitalist ROS - Review of Systems Constitutional: denies: fever, chills, sweats, weakness, malaise, other Cardiovascular: denies: chest pain, palpitations, orthopnea, paroxysmal noc. dyspnea, edema, light headedness, other - Medication Medications: Active Medications Generic Name Dose Route Start Last Admin Trade Name Freq PRN Reason Stop Dose Admin Albuterol/Ipratropium 3 ml 01/27/19 19:00 01/29/19 06:39 Duoneb NEB 3 ml [id number] MAYELA Administration Duloxetine HCl 60 mg 01/28/19 09:00 01/29/19 08:53 Cymbalta PO 60 mg DAILY MAYELA Administration Enoxaparin Sodium 40 mg 01/28/19 09:00 01/29/19 08:54 Lovenox SC 40 mg 0900 MAYELA Administration Mometasone Furoate/Formoterol Fumar 2 puff 01/28/19 18:30 01/29/19 06:37 Dulera 200 Mcg/5 Mcg Inhaler INH 2 puff BID-RT MAYELA Administration Ondansetron HCl 4 mg 01/27/19 21:20 01/27/19 21:35 Zofran IVP 4 mg Q6H PRN Administration Nausea/Vomiting Pantoprazole Sodium 40 mg 01/28/19 09:00 01/29/19 08:53 Protonix PO 40 mg DAILY MAYELA Administration Pregabalin 50 mg 01/28/19 09:00 01/29/19 08:54 Lyrica PO 50 mg DAILY MAYELA Administration - Exam General Appearance: NAD Neck: supple, no JVD Heart: RRR, no gallops Respiratory: no wheezes, normal chest expansion, rhonchi Gastrointestinal: soft, non-tender, non-distended, normal bowel sounds Extremities: no edema Skin: no rashes Hosp A/P - Plan DVT proph w/lovenox Acute hypoxic resp failure due to Asthmatic bronchitis Chronic diastolic HF Obesity BMI 37.1 DJD Depression - mild - stable Hyponatremia Ventral Hernia PLAN: Home O2 eval - O2 sat today is 87% on RA. Will need home O2. Cont Levaquin with Steroids Cont other meds Ambulate
[2019-01-30] MEDS: DULoxetine 60 MG CAP PO SCH (07:57)
[2019-01-30] MEDS: Enoxaparin Sodium 40 MG/0.4 ML SYRINGE SC SCH (07:57)
[2019-01-30] MEDS: Pregabalin 50 MG CAP PO SCH (07:58)
[2019-01-30] MEDS ORDERED: predniSONE 20 MG TAB PO SCH (08:00)
[2019-01-30] MEDS: Mometasone/Formoterol 120 PUFF INHALER INH SCH (08:29)
--- NOTE | 2019-01-30 10:01 | PDOC.HOSPP ---
- Subjective Encounter Date: 01/30/19 Encounter Time: 09:59 Subjective: Patient seen and examined for Resp failure. SOB improving. Feeling better on O2 2l NC. No new complaints. No overnight events - Objective Vital Signs & Weight: Vital Signs (12 hours) Temp Pulse Resp BP Pulse Ox 01/30/19 08:29 82 16 94 L 01/30/19 07:47 97.7 F 78 18 124/82 99 01/30/19 04:00 97.3 F L 74 18 105/67 96 01/30/19 00:19 76 16 93 L 01/30/19 00:00 97.8 F 72 18 115/77 98 Weight Admit Weight 209 lb 8 oz Weight 209 lb 8 oz I&O: 01/29/19 01/30/19 01/31/19 06:59 06:59 06:59 Intake Total 1080 Balance 1080 Result Diagrams: 01/29/19 04:53 01/29/19 04:53 Hospitalist ROS - Review of Systems Respiratory: reports: SOB with excertion. denies: cough, dry, shortness of breath, hemoptysis, pleuritic pain, sputum, wheezing, other Cardiovascular: denies: chest pain, palpitations, orthopnea, paroxysmal noc. dyspnea, edema, light headedness, other - Medication Medications: Active Medications Generic Name Dose Route Start Last Admin Trade Name Freq PRN Reason Stop Dose Admin Albuterol/Ipratropium 3 ml 01/27/19 19:00 01/30/19 08:29 Duoneb NEB 3 ml [id number] MAYELA Administration Duloxetine HCl 60 mg 01/28/19 09:00 01/30/19 07:57 Cymbalta PO 60 mg DAILY MAYELA Administration Enoxaparin Sodium 40 mg 01/28/19 09:00 01/30/19 07:57 Lovenox SC 40 mg 0900 MAYELA Administration Levofloxacin 500 mg 01/30/19 06:00 01/30/19 05:38 Levaquin PO 02/04/19 06:01 500 mg 0600 MAYELA Administration Mometasone Furoate/Formoterol Fumar 2 puff 01/28/19 18:30 01/30/19 08:29 Dulera 200 Mcg/5 Mcg Inhaler INH 2 puff BID-RT MAYELA Administration Ondansetron HCl 4 mg 01/27/19 21:20 01/27/19 21:35 Zofran IVP 4 mg Q6H PRN Administration Nausea/Vomiting Pantoprazole Sodium 40 mg 01/28/19 09:00 01/30/19 07:57 Protonix PO 40 mg DAILY MAYELA Administration Prednisone 40 mg 01/30/19 08:00 01/30/19 07:57 Prednisone PO 40 mg QAM-WM MAYELA Administration Pregabalin 50 mg 01/28/19 09:00 01/30/19 07:58 Lyrica PO 50 mg DAILY MAYELA Administration Sodium Chloride 10 ml 01/29/19 21:00 01/30/19 07:57 Flush - Normal Saline IVF 10 ml Q12HR MAYELA Administration - Exam General Appearance: NAD Neck: supple, no JVD Heart: RRR, no gallops Respiratory: CTAB, no rales, rhonchi Gastrointestinal: soft, normal bowel sounds Hosp A/P - Plan Acute hypoxic resp failure due to Asthmatic bronchitis Chronic diastolic HF Obesity BMI 37.1 DJD Depression - mild - stable Hyponatremia Ventral Hernia PLAN: Home O2 eval - O2 sat yesterday was 87% on RA. Will eval again today. Probably need home O2. Cont Levaquin with Steroids DC home - I d/w Dr Vilchis
--- NOTE | 2019-01-30 10:08 | PRG ---
DATE OF SERVICE: 01/30/2019 SUBJECTIVE: This morning, she is doing better, less cough, less shortness of breath. Her saturations were somewhat low, though apparently 94% on 2L. OBJECTIVE: VITAL SIGNS: Temperature 97, pulse 82, and blood pressure 120/82. CHEST: No wheezing or crackles. CARDIAC: Normal S1 and S2. No gallops. ABDOMEN: No masses. IMPRESSION: Organizing pneumonia, morbid obesity, depression, and chronic pain. At this stage, continue PT, supportive care. Last chest x-ray did not show any obvious infiltrates except for an elevated right hemidiaphragm. She probably might have ground-glass opacity from atypical infection. PLAN: I would consider sending her home on Levaquin, which she is on for another week. Taper prednisone over 10 days. Job ID: [id number]
--- NOTE | 2019-01-30 10:52 | DIS ---
DATE OF ADMISSION: 01/27/2019 DATE OF DISCHARGE: 01/30/2019 DISCHARGE DISPOSITION: Home. FOLLOWUP: 1. Follow up with primary care physician, Dr. Liam Tucker in one week. 2. Follow up with patient services technician in 2 to 3 weeks. ALLERGIES: THE PATIENT IS ALLERGIC TO CODEINE AND MUSHROOM. DISCHARGE MEDICATION: 1. Levofloxacin 500 mg daily for next 5 days. 2. Dulera 200 mcg/5 mcg two puffs b.i.d. 3. Albuterol inhaler as needed. 4. Prednisone taper. 5. The patient was advised to resume Cymbalta and Lyrica. The patient was seen on the day of discharge. Denies any new complaints. Shortness of breath has significantly improved. Her O2 saturation on the day of discharge is 94% on 2 L nasal cannula. BRIEF HOSPITAL COURSE: The patient is a 78-year-old female with obesity and chronic diastolic heart failure, presented to the hospital with abdominal discomfort along with shortness of breath. She was recently evaluated at [facility] and had a CT scan which showed a ventral abdominal hernia. She was found to have O2 saturation of 89% on room air. She was monitored on the medical floor. She was started on antibiotics along with steroids for acute hypoxic respiratory failure secondary to asthmatic bronchitis. An echocardiogram was performed that showed ejection fraction of 60% to 65% with diastolic dysfunction, moderate mitral regurgitation and mild tricuspid regurgitation. BNP was elevated at 254. She was also seen by Pulmonary, Dr. Vilchis. She had a repeat chest x-ray yesterday that showed mild congestive heart failure. Fluid restriction was emphasized. She will be discharged later today after home O2 assessment. DIAGNOSTIC TESTS: Respiratory viral panel was negative. Sodium at discharge is 135. BNP on admission was 254. WBC of 6.[address] angiogram of the chest was negative for pulmonary embolism. There was nonspecific diffuse bilateral heterogeneous distributed ground-glass densities. DISCHARGE DIAGNOSES: 1. Acute hypoxic respiratory failure secondary to asthmatic bronchitis. 2. Chronic diastolic heart failure. 3. Obesity with a BMI of 37.1. 4. Degenerative joint disease. 5. Depression, mild stable. 6. Hyponatremia. 7. Ventral hernia. 8. Chronic kidney disease, stage 2. 9. Obesity with a BMI of 37.1. 10. ?WIN. The patient will benefit from a sleep study as outpatient. Job ID: [id number] [facility]
[2019-01-30 16:11] VITALS: BP 140/87; TEMP 98.2
== END 2019-01-30 16:38 | disposition home or self-care (01) | DRG 189 ==
LOC: ERS 06:36 → T4-B 11:02
PROVIDERS: ADMIT Internal Medicine; ATTEND Internal Medicine
DX: J96.01 Acute respiratory failure with hypoxia (principal); I50.32 Chronic diastolic (congestive) heart failure; E87.1 Hypo-osmolality and hyponatremia; F32.0 Major depressive disorder, single episode, mild; I13.0 Hypertensive heart and chronic kidney disease with heart failure and stage 1 through stage 4 chronic kidney disease, or unspecified chronic kidney disease; J45.909 Unspecified asthma, uncomplicated; M19.91 Primary osteoarthritis, unspecified site; M54.9 Dorsalgia, unspecified; G89.29 Other chronic pain; E66.01 Morbid (severe) obesity due to excess calories; K43.9 Ventral hernia without obstruction or gangrene; N18.2 Chronic kidney disease, stage 2 (mild); K21.9 Gastro-esophageal reflux disease without esophagitis; Z90.79 Acquired absence of other genital organ(s); Z90.710 Acquired absence of both cervix and uterus; Z79.899 Other long term (current) drug therapy; Z88.5 Allergy status to narcotic agent; Z68.37 Body mass index [BMI] 37.0-37.9, adult; Z91.018 Allergy to other foods; Z90.49 Acquired absence of other specified parts of digestive tract
CPT/HCPCS: 36415; 71046; 71275; 80048; 80053; 83690; 83880; 84484; 85025; 87633; 93306; 94640; 94760; 96365; 96367; 96375; J0456; J0696; J1650; J1956; J2405; J2920; J3010; J7512; J7620; Q9966

== ENCOUNTER 2019-03-05 12:33 | Outpatient (CLI) | payer MEDICARE ==
--- NOTE | 2019-03-05 12:58 | RAD ---
EXAM: Two views chest PROVIDED CLINICAL HISTORY: Dyspnea COMPARISON: 01/29/2019 FINDINGS: Cardiac silhouette remains mildly enlarged. Pulmonary vasculature is within normal limits. Interstiti al prominence is again seen bilaterally which may related to mild chronic interstitial lung changes. No consolidation or pleural fluid is identified. Elevation right hemidiaphragm is again seen . Degenerative changes are again seen involving the spine. There are postsurgical changes involving the cervical spine and visualized upper lumbar spine. Vascular calcifications are seen in the thoraci c aorta. IMPRESSION: 1. Stable chest without evidence of an acute cardiopulmonary process. 2. Persistent mild prominence of the interstitial markings which could be related to mild chronic patel g changes. 3. Persistent elevation right hemidiaphragm..
== END 2019-03-05 12:34 | disposition home or self-care (01) ==
LOC: RAD 12:33
PROVIDERS: ATTEND Internal Medicine Pulmonary Disease
DX: R06.00 Dyspnea, unspecified (principal); J98.6 Disorders of diaphragm
CPT/HCPCS: 71046

== ENCOUNTER 2019-08-07 09:51 | Outpatient (CLI) | payer MEDICARE ==
--- NOTE | 2019-08-07 13:46 | MMO ---
Bilateral MAMMO Bilat Screen DDI+GISSEL. CLINICAL HISTORY: Patient is 78 years old and is seen for screening. The patient has no family history of breast cancer. The patient has no personal history of cancer. VIEWS: The views performed were: bilateral craniocaudal with tomosynthesis and bilateral mediolateral oblique with tomosynthesis. FILMS COMPARED: The present examination has been compared to prior imaging studies performed at [facility] on 06/16/2016, 07/01/2017 and 07/07/2018. This study has been interpreted with the assistance of computer-aided detection. MAMMOGRAM FINDINGS: There are scattered fibroglandular densities. Benign calcifications are noted bilaterally. There are no suspicious masses, suspicious calcifications, or new areas of architectural distortion. IMPRESSION: THERE IS NO MAMMOGRAPHIC EVIDENCE OF MALIGNANCY. A ROUTINE FOLLOW-UP MAMMOGRAM IN 1 YEAR IS RECOMMENDED. THE RESULTS OF THIS EXAM WERE SENT TO THE PATIENT. ACR BI-RADS Category 2 - Benign finding MAMMOGRAPHY NOTE: 1. A negative mammogram report should not delay a biopsy if a dominant of clinically suspicious mass is present. 2. Approximately 10% to 15% of breast cancers are not detected by mammography. 3. Adenosis and dense breasts may obscure an underlying neoplasm. Reported by: LAST BLISS MD Electonically Signed: [id number]
== END 2019-08-07 09:52 | disposition home or self-care (01) ==
LOC: BICMAMMO 09:51
PROVIDERS: ATTEND Internal Medicine
DX: Z12.31 Encounter for screening mammogram for malignant neoplasm of breast (principal)
CPT/HCPCS: 77063; 77067

== ENCOUNTER 2020-02-08 11:54 | Outpatient (CLI) | payer MEDICARE ==
--- NOTE | 2020-02-08 15:06 | CT ---
CT BRAIN WITH AND WITHOUT IV CONTRAST: 02/08/20 HISTORY: Headache. Right temporal headache. Occasional earache. COMPARISON: None. FINDINGS: No evidence of infarct, hemorrhage, mass, midline shift, or abnormal extra-axial fluid collections ar e seen. The ventricular size is appropriate and the basilar cisterns patent. There are changes of mil d chronic small vessel ischemic disease in the periventricular white matter. No abnormal postcontrast enhancement is seen. The bony calvarium is intact. The visualized paranasal sinuses are well aerated . There is incomplete aeration of the mastoid air cells. IMPRESSION: No CT evidence of acute intracranial process or mass. POS: AH
[2020-02-08] MEDS ORDERED: Iopamidol-370 76% 500 ML 1 ML ONE (15:07)
== END 2020-02-08 11:55 | disposition home or self-care (01) ==
LOC: BICCT 11:54
PROVIDERS: ATTEND Internal Medicine
DX: G44.219 Episodic tension-type headache, not intractable (principal); G43.001 Migraine without aura, not intractable, with status migrainosus
CPT/HCPCS: 70470; 82565; Q9967

== ENCOUNTER 2020-03-19 09:16 | Outpatient (CLI) | payer MEDICARE ==
--- NOTE | 2020-03-19 09:52 | RAD ---
2 views of the chest: 03/19/2020 COMPARISON: 10/17/2019 and 03/05/2019 HISTORY: Shortness of breath FINDINGS: There are areas of increased linear interstitial density seen diffusely with a bibasilar an d peripheral predominance, similar when compared to the 03/05/2019 exam. Stable elevation of the right hemidiaphragm. No pneumothorax or pleural fluid is seen and there is no focal consolidation or alveolar edema. Stable prominence of the cardiac silhouette seen on the lateral view. IMPRESSION: No significant interval change. Findings suggest chronic interstitial disease. No focal c onsolidation or alveolar edema.
== END 2020-03-19 09:17 | disposition home or self-care (01) ==
LOC: BICRAD 09:16
PROVIDERS: ATTEND Internal Medicine Critical Care Medicine
DX: R06.00 Dyspnea, unspecified (principal)
CPT/HCPCS: 71046

== ENCOUNTER 2020-08-11 10:27 | Outpatient (CLI) | payer MEDICARE | END 2020-08-11 10:28 | disposition home or self-care (01) | LOC: BICMAMMO 10:27 | PROVIDERS: ATTEND Internal Medicine | DX: Z12.31 Encounter for screening mammogram for malignant neoplasm of breast (principal) | CPT/HCPCS: 77063; 77067 ==

== ENCOUNTER 2020-09-18 11:22 | Outpatient (CLI) | payer MEDICARE | END 2020-09-18 11:23 | disposition home or self-care (01) | LOC: BICRAD 11:22 | PROVIDERS: ATTEND Internal Medicine Critical Care Medicine | DX: R06.00 Dyspnea, unspecified (principal); I51.7 Cardiomegaly | CPT/HCPCS: 71046 ==

== ENCOUNTER 2021-03-12 09:18 | Outpatient (CLI) | payer MEDICARE | END 2021-03-12 09:19 | disposition home or self-care (01) | LOC: RAD 09:18 | PROVIDERS: ATTEND Internal Medicine Critical Care Medicine | DX: R06.00 Dyspnea, unspecified (principal) | CPT/HCPCS: 71046 ==

== ENCOUNTER 2021-08-18 10:31 | Outpatient (CLI) | payer MEDICARE | END 2021-08-18 10:32 | disposition home or self-care (01) | LOC: BICMAMMO 10:31 | PROVIDERS: ATTEND Internal Medicine | DX: Z12.31 Encounter for screening mammogram for malignant neoplasm of breast (principal) | CPT/HCPCS: 77063; 77067 ==

== ENCOUNTER 2021-10-01 10:13 | Outpatient (CLI) | payer MEDICARE | END 2021-10-01 10:14 | disposition home or self-care (01) | LOC: BICCT 10:13 | PROVIDERS: ATTEND Family Medicine | DX: M47.812 Spondylosis without myelopathy or radiculopathy, cervical region (principal); G89.4 Chronic pain syndrome; M48.02 Spinal stenosis, cervical region; Z98.1 Arthrodesis status | CPT/HCPCS: 72040; 72125 ==

== ENCOUNTER 2021-10-01 11:11 | Observation (INO) | payer MEDICARE ==
[2021-10-01 11:59] LABS: #Basophils 0.1 thou/uL (0.0-0.2); #Eosinphils 0.2 thou/uL (0.0-0.7); #Lymphocytes 2.7 thou/uL (1.20-3.40); #Monocytes 0.7 thou/uL (0.11-0.59); #Neutrophils 4.9 thou/uL (1.40-6.50); %Basophils 0.6 % (0.0-1.0); %Eosinophils 2.8 % (0.0-10.0); %Monocytes 8.5 % (0.0-10.0); Hemoglobin 14.5 g/dL (12.0-16.0); Mean Corpuscular HGB CONC 32.5 g/dL (32.0-36.0); Mean Corpuscular Hemoglobin 31.1 pg (27.0-31.0); Mean Corpuscular Volume 95.5 fL (78.0-98.0); Mean Platelet Volume 7.5 fL (7.4-10.4); Platelet Count 194 thou/uL (130-400); RBC Distribution Width 12.5 % (11.5-14.5); Red Blood Cell (RBC) Count 4.65 mill/uL (4.20-5.40); White Blood Cell (WBC) Count 8.6 thou/uL (4.8-10.8)
[2021-10-01 12:27] LABS: ALT (SGPT) 27 U/L (8-55); AST (SGOT) 50 U/L (5-34); Albumin 4.1 g/dL (3.4-4.8); Alkaline Phosphatase 90 U/L (40-110); Anion Gap 13 mmol/L (10-20); BUN (Urea Nitrogen) 17 mg/dL (9.8-20.1); Bilirubin, Total 0.7 mg/dL (0.2-1.2); Calc. Creatinine Clearance 0 mL/min (70-130); Calcium 9.6 mg/dL (7.8-10.44); Carbon Dioxide 31 mmol/L (23-31); Chloride 96 mmol/L (98-107); Globulin 2.6 g/dL (2.4-3.5); Glucose 97 mg/dL (83-110); Lipase 12 U/L (8-78); Potassium 4.1 mmol/L (3.5-5.1); Protein, Total 6.7 g/dL (5.8-8.1); Sodium 136 mmol/L (136-145)
[2021-10-01] MEDS ORDERED: Nitroglycerin 2% Ointment 1 INCH/1 GM Packet ONE (13:09)
[2021-10-01] MEDS ORDERED: Aspirin Chewable 81 MG TAB ONE (13:10)
[2021-10-01] MEDS ORDERED: Acetaminophen 325 MG TAB PO PRN (16:15)
[2021-10-01] MEDS ORDERED: Ondansetron ODT 4 MG TAB SL PRN (16:15)
[2021-10-01] MEDS ORDERED: Ondansetron PF 4 MG/2 ML Vial IVP PRN (16:15)
[2021-10-01 16:50] VITALS: BMI 35.8
[2021-10-01 18:42] LABS: Troponin I Less than 0.010 ng/mL (< 0.028)
[2021-10-02] MEDS ORDERED: Acetaminophen 325 MG TAB PO PRN (03:53)
[2021-10-02] MEDS ORDERED: Ondansetron ODT 4 MG TAB PO PRN (03:54)
[2021-10-02] MEDS ORDERED: Electrolyte Replacement Protocol 1 EACH FS SCH (04:00)
[2021-10-02] MEDS ORDERED: Arformoterol 15 MCG/2 ML NEB NEB SCH (06:30)
[2021-10-02] MEDS ORDERED: DULoxetine 60 MG CAP PO SCH (09:00)
[2021-10-02] MEDS ORDERED: Aspirin Chewable 81 MG TAB PO SCH (09:00)
[2021-10-02] MEDS: Budesonide 0.5 MG/2 ML NEB NEB SCH ×2 (11:32→11:33)
[2021-10-02 11:42] VITALS: BP 124/67; TEMP 99.2
[2021-10-02] MEDS ORDERED: Meloxicam 7.5 MG TAB PO SCH (21:00)
== END 2021-10-02 12:25 | disposition home or self-care (01) ==
LOC: ERS 11:11 → 2SW 14:31
PROVIDERS: ADMIT Internal Medicine; ATTEND Internal Medicine
DX: R07.89 Other chest pain (principal); I11.9 Hypertensive heart disease without heart failure; K21.9 Gastro-esophageal reflux disease without esophagitis; M19.90 Unspecified osteoarthritis, unspecified site; G89.29 Other chronic pain; M54.9 Dorsalgia, unspecified; Q33.9 Congenital malformation of lung, unspecified; Z79.1 Long term (current) use of non-steroidal anti-inflammatories (NSAID); Z79.899 Other long term (current) drug therapy; Z88.5 Allergy status to narcotic agent; Z91.018 Allergy to other foods; Z99.81 Dependence on supplemental oxygen; Z20.822 Contact with and (suspected) exposure to COVID-19
CPT/HCPCS: 71045; 72040; 72125; 80053; 83690; 83880; 84484 ×2; 85025; 93005; 94760 ×2; 99285; U0003; U0005; 36415; G0378; J7626

== ENCOUNTER 2021-11-05 07:50 | Emergency (ER) | payer MEDICARE ==
[2021-11-05] MEDS ORDERED: Ondansetron ODT 4 MG TAB ONE (08:50)
[2021-11-05] MEDS ORDERED: Acetaminophen 500 MG TAB ONE (08:50)
[2021-11-05 09:29] LABS: #Basophils 0.1 thou/uL (0.0-0.2); #Eosinphils 0.5 thou/uL (0.0-0.7); #Lymphocytes 1.3 thou/uL (1.20-3.40); #Monocytes 0.6 thou/uL (0.11-0.59); #Neutrophils 4.7 thou/uL (1.40-6.50); %Basophils 0.9 % (0.0-1.0); %Eosinophils 6.5 % (0.0-10.0); %Lymphocytes 17.9 % (21.0-51.0); %Neutrophils 66.6 % (42.0-75.0); Hemoglobin 14.7 g/dL (12.0-16.0); Mean Corpuscular HGB CONC 31.8 g/dL (32.0-36.0); Mean Corpuscular Hemoglobin 29.7 pg (27.0-31.0); Mean Corpuscular Volume 93.2 fL (78.0-98.0); Mean Platelet Volume 7.4 fL (7.4-10.4); Platelet Count 218 thou/uL (130-400); RBC Distribution Width 12.2 % (11.5-14.5); Red Blood Cell (RBC) Count 4.95 mill/uL (4.20-5.40); White Blood Cell (WBC) Count 7.1 thou/uL (4.8-10.8)
[2021-11-05 09:49] LABS: ALT (SGPT) 9 U/L (8-55); AST (SGOT) 15 U/L (5-34); Albumin 3.9 g/dL (3.4-4.8); Alkaline Phosphatase 100 U/L (40-110); Anion Gap 13 mmol/L (10-20); BUN (Urea Nitrogen) 10 mg/dL (9.8-20.1); Bilirubin, Total 0.5 mg/dL (0.2-1.2); Calc. Creatinine Clearance 0 mL/min (70-130); Calcium 10.2 mg/dL (7.8-10.44); Carbon Dioxide 32 mmol/L (23-31); Chloride 98 mmol/L (98-107); Estimated GFR 89; Globulin 3.4 g/dL (2.4-3.5); Glucose 97 mg/dL (83-110); Lipase 4 U/L (8-78); Potassium 4.2 mmol/L (3.5-5.1); Protein, Total 7.3 g/dL (5.8-8.1); Sodium 139 mmol/L (136-145)
[2021-11-05 12:49] LABS: Bacteria/HPF 2+ HPF (None Seen); Bilirubin 1+ (Negative); Blood, Urine Negative (Negative); Calcium Oxalate Crystals 4+ HPF (None Seen); Clarity Turbid (Clear); Glucose, Urine (Dipstick) Normal (Negative); Ketone, Urine 20 mg/dL (Negative); Leukocyte 25 Leu/uL (Negative); Nitrite Negative (Negative); Protein, Urine (Dipstick) 20 mg/dL (Neg-Trace); RBC/HPF 0-3 HPF (0-3)
== END 2021-11-05 13:20 | disposition home or self-care (01) ==
LOC: ERS 07:50
DX: N39.0 Urinary tract infection, site not specified (principal); R11.2 Nausea with vomiting, unspecified; R53.1 Weakness; K21.9 Gastro-esophageal reflux disease without esophagitis; I10 Essential (primary) hypertension; Z79.899 Other long term (current) drug therapy
CPT/HCPCS: 71045; 80053; 83690; 84484; 85025; 93005; 99285; U0003; U0005; 36415; 81003; 81015; Q0162

== ENCOUNTER 2022-01-18 13:32 | Emergency (ER) | payer MEDICARE ==
[2022-01-18] MEDS ORDERED: Lorazepam 2 MG/ML VIAL ONE (13:59)
[2022-01-18 14:47] LABS: #Basophils 0.1 thou/uL (0.0-0.2); #Eosinphils 0.4 thou/uL (0.0-0.7); #Lymphocytes 1.8 thou/uL (1.20-3.40); #Monocytes 0.5 thou/uL (0.11-0.59); #Neutrophils 3.7 thou/uL (1.40-6.50); %Basophils 1.5 % (0.0-1.0); %Eosinophils 5.5 % (0.0-10.0); %Lymphocytes 27.5 % (21.0-51.0); %Monocytes 7.6 % (0.0-10.0); %Neutrophils 57.8 % (42.0-75.0); Hemoglobin 13.6 g/dL (12.0-16.0); Mean Corpuscular HGB CONC 31.9 g/dL (32.0-36.0); Mean Corpuscular Hemoglobin 30.1 pg (27.0-31.0); Mean Corpuscular Volume 94.4 fL (78.0-98.0); Mean Platelet Volume 8.1 fL (7.4-10.4); Platelet Count 156 thou/uL (130-400); RBC Distribution Width 12.7 % (11.5-14.5); Red Blood Cell (RBC) Count 4.51 mill/uL (4.20-5.40); White Blood Cell (WBC) Count 6.4 thou/uL (4.8-10.8)
[2022-01-18 15:02] LABS: ALT (SGPT) 10 U/L (8-55); AST (SGOT) 19 U/L (5-34); Albumin 3.9 g/dL (3.4-4.8); Alkaline Phosphatase 86 U/L (40-110); Anion Gap 13 mmol/L (10-20); BUN (Urea Nitrogen) 18 mg/dL (9.8-20.1); Bilirubin, Total 0.7 mg/dL (0.2-1.2); Calc. Creatinine Clearance 0 mL/min (70-130); Calcium 9.7 mg/dL (7.8-10.44); Carbon Dioxide 29 mmol/L (23-31); Chloride 101 mmol/L (98-107); Estimated GFR 86; Globulin 2.6 g/dL (2.4-3.5); Glucose 96 mg/dL (83-110); Potassium 4.5 mmol/L (3.5-5.1); Protein, Total 6.5 g/dL (5.8-8.1); Sodium 138 mmol/L (136-145)
== END 2022-01-18 16:20 | disposition home or self-care (01) ==
LOC: ERS 13:32
DX: R20.2 Paresthesia of skin (principal); F41.9 Anxiety disorder, unspecified; I10 Essential (primary) hypertension; K21.9 Gastro-esophageal reflux disease without esophagitis; M19.90 Unspecified osteoarthritis, unspecified site; G62.9 Polyneuropathy, unspecified
CPT/HCPCS: 36415; 70450; 80053; 83880; 84484; 85025; 96374; J2060

== ENCOUNTER 2022-03-18 09:04 | Outpatient (CLI) | payer MEDICARE | END 2022-03-18 09:05 | disposition home or self-care (01) | LOC: RAD 09:04 | PROVIDERS: ATTEND Internal Medicine Critical Care Medicine | DX: R06.00 Dyspnea, unspecified (principal); I51.7 Cardiomegaly; R09.89 Other specified symptoms and signs involving the circulatory and respiratory systems | CPT/HCPCS: 71046 ==

== ENCOUNTER 2022-10-15 10:17 | Outpatient (CLI) | payer MEDICARE | END 2022-10-15 10:18 | disposition home or self-care (01) | LOC: BICMAMMO 10:17 | PROVIDERS: ATTEND Family Medicine | DX: Z12.31 Encounter for screening mammogram for malignant neoplasm of breast (principal) | CPT/HCPCS: 77063; 77067 ==

== ENCOUNTER 2022-11-23 09:47 | Inpatient (IN) | payer MEDICARE ==
[~2022-11-23 09:47] MED LIST: Iopamidol-370 76% 500 ML MDV (1 ML CHARGE) ONE
[2022-11-23] MEDS ORDERED: methylPREDNISolone Sod Succ/PF 125 MG/2 ML VIAL ONE (10:34)
[2022-11-23] MEDS ORDERED: Aspirin Chewable 81 MG TAB ONE (10:34)
[2022-11-23] MEDS ORDERED: Magnesium 2 GM/50 ML BAG (IN WATER) ONE (10:34)
[2022-11-23 10:36] LABS: #Basophils 0.1 thou/uL (0.0-0.2); #Eosinphils 0.2 thou/uL (0.0-0.7); #Monocytes 0.6 thou/uL (0.11-0.59); #Neutrophils 5.2 thou/uL (1.40-6.50); %Basophils 0.8 % (0.0-1.0); %Eosinophils 1.8 % (0.0-10.0); %Lymphocytes 28.3 % (21.0-51.0); %Monocytes 6.8 % (0.0-10.0); %Neutrophils 61.9 % (42.0-75.0); Hematocrit 46.6 % (36.0-47.0); Hemoglobin 14.8 g/dL (12.0-16.0); Mean Corpuscular HGB CONC 31.8 g/dL (32.0-36.0); Mean Corpuscular Hemoglobin 29.6 pg (27.0-31.0); Mean Corpuscular Volume 93.2 fl (78.0-98.0); Mean Platelet Volume 10.1 fL (7.4-10.4); Platelet Count 156 10x3/uL (130-400); White Blood Cell (WBC) Count 8.4 10x3/uL (4.8-10.8)
[2022-11-23 11:18] LABS: Troponin I 0.014 ng/mL (< 0.028)
[2022-11-23 11:19] LABS: ALT (SGPT) 13 U/L (8-55); AST (SGOT) 22 U/L (5-34); Albumin 3.8 g/dL (3.4-4.8); Alkaline Phosphatase 85 U/L (40-110); Anion Gap 14 mmol/L (10-20); BUN (Urea Nitrogen) 19 mg/dL (9.8-20.1); Bilirubin, Total 0.6 mg/dL (0.2-1.2); Calc. Creatinine Clearance 0 mL/min (70-130); Calcium 9.5 mg/dL (7.6-10.4); Carbon Dioxide 27 mmol/L (23-31); Chloride 100 mmol/L (98-107); Estimated GFR 71; Glucose 98 mg/dL (83-110); Potassium 4.3 mmol/L (3.5-5.1); Protein, Total 6.8 g/dL (5.8-8.1); Sodium 137 mmol/L (136-145)
[2022-11-23] MEDS ORDERED: Ondansetron ODT 4 MG TAB PO PRN (13:17)
[2022-11-23 13:43] LABS: Troponin I 0.012 ng/mL (< 0.028)
[2022-11-23] MEDS ORDERED: ALPRAZolam 0.5 MG TAB PO PRN (14:08)
[2022-11-23 18:22] VITALS: BMI 34.2
[2022-11-23] MEDS: methylPREDNISolone Sod Succ 40 MG VIAL IVP SCH (18:53)
[2022-11-23 19:03] LABS: Troponin I Less than 0.010 ng/mL (< 0.028)
[2022-11-23] MEDS: Budesonide 0.5 MG/2 ML NEB NEB SCH (19:17)
[2022-11-23] MEDS: Ipratropium/Albuterol 3 ML NEB NEB PRN (19:19)
[2022-11-23] MEDS: Atorvastatin Calcium 40 MG TAB PO SCH (22:06)
[2022-11-24] MEDS: methylPREDNISolone Sod Succ 40 MG VIAL IVP SCH ×4 (03:35→17:51)
[2022-11-24 07:03] LABS: Cardiac Risk 2.6 (Less than 4.5)
[2022-11-24] MEDS: Budesonide 0.5 MG/2 ML NEB NEB SCH ×2 (08:37→19:01)
[2022-11-24] MEDS: Ipratropium/Albuterol 3 ML NEB NEB PRN (08:39)
[2022-11-24] MEDS: Famotidine 20 MG TAB PO SCH ×2 (09:18→21:37)
[2022-11-24] MEDS: Aspirin Chewable 81 MG TAB PO SCH (09:19)
[2022-11-24] MEDS: DULoxetine 60 MG CAP PO SCH (09:19)
[2022-11-24] MEDS: Ipratropium/Albuterol 3 ML NEB NEB SCH ×4 (10:30→23:18)
[2022-11-24] MEDS ORDERED: traMADol HCl 50 MG TAB PO PRN (16:50)
[2022-11-24] MEDS ORDERED: Furosemide 40 MG TAB PO SCH (17:00)
[2022-11-24] MEDS: Atorvastatin Calcium 40 MG TAB PO SCH (21:38)
[2022-11-25] MEDS: methylPREDNISolone Sod Succ 40 MG VIAL IVP SCH ×5 (02:06→23:54)
[2022-11-25] MEDS: Ipratropium/Albuterol 3 ML NEB NEB SCH ×4 (02:49→18:43)
[2022-11-25 05:05] LABS: Anion Gap 12 mmol/L (10-20); BUN (Urea Nitrogen) 21 mg/dL (9.8-20.1); Calc. Creatinine Clearance 67 mL/min (70-130); Calcium 9.7 mg/dL (7.8-10.44); Carbon Dioxide 29 mmol/L (23-31); Chloride 100 mmol/L (98-107); Estimated GFR 70; Glucose 128 mg/dL (83-110); Magnesium 2.5 mg/dL (1.6-2.6); Potassium 4.1 mmol/L (3.5-5.1); Sodium 137 mmol/L (136-145)
[2022-11-25] MEDS: Furosemide 20 MG/2 ML VIAL SLOW IVP SCH ×2 (05:46→14:17)
[2022-11-25] MEDS: Budesonide 0.5 MG/2 ML NEB NEB SCH ×2 (06:51→18:43)
[2022-11-25] MEDS: Aspirin Chewable 81 MG TAB PO SCH (08:48)
[2022-11-25] MEDS: Acetaminophen 325 MG TAB PO PRN ×2 (08:48→22:17)
[2022-11-25] MEDS: Famotidine 20 MG TAB PO SCH ×2 (08:48→22:18)
[2022-11-25] MEDS: Azithromycin 250 MG TAB PO SCH (08:48)
[2022-11-25] MEDS: DULoxetine 60 MG CAP PO SCH (08:48)
[2022-11-25] MEDS ORDERED: Polyethylene Glycol 3350 17 GM Packet PO PRN (11:50)
[2022-11-25] MEDS ORDERED: Polyethylene Glycol 3350 17 GM Packet PO SCH (12:00)
[2022-11-25] MEDS: Senokot S 8.6-50 MG TAB PO SCH (22:19)
[2022-11-25] MEDS: Atorvastatin Calcium 40 MG TAB PO SCH (22:19)
[2022-11-26] MEDS: Ipratropium/Albuterol 3 ML NEB NEB SCH ×3 (00:04→13:46)
[2022-11-26 04:02] LABS: #Monocytes 0.3 thou/uL (0.11-0.59); %Basophils 0.1 % (0.0-1.0); %Lymphocytes 4.5 % (21.0-51.0); %Monocytes 3.3 % (0.0-10.0); %Neutrophils 91.4 % (42.0-75.0); Hematocrit 43.7 % (36.0-47.0); Hemoglobin 14.4 g/dL (12.0-16.0); Mean Platelet Volume 10.5 fL (7.4-10.4); Platelet Count 152 10x3/uL (130-400); RBC Distribution Width 14.5 % (11.5-14.5); White Blood Cell (WBC) Count 8.7 10x3/uL (4.8-10.8)
[2022-11-26 04:30] LABS: Anion Gap 13 mmol/L (10-20); BUN (Urea Nitrogen) 24 mg/dL (9.8-20.1); Calc. Creatinine Clearance 73 mL/min (70-130); Calcium 9.7 mg/dL (7.8-10.44); Carbon Dioxide 31 mmol/L (23-31); Chloride 97 mmol/L (98-107); Estimated GFR 78; Glucose 140 mg/dL (83-110); Potassium 4.1 mmol/L (3.5-5.1); Sodium 137 mmol/L (136-145)
[2022-11-26] MEDS: methylPREDNISolone Sod Succ 40 MG VIAL IVP SCH ×2 (05:49→12:39)
[2022-11-26] MEDS: Budesonide 0.5 MG/2 ML NEB NEB SCH (06:52)
[2022-11-26] MEDS ORDERED: Furosemide 40 MG TAB PO SCH (07:30)
[2022-11-26] MEDS: Azithromycin 250 MG TAB PO SCH (10:36)
[2022-11-26] MEDS: Famotidine 20 MG TAB PO SCH (10:38)
[2022-11-26] MEDS: Aspirin Chewable 81 MG TAB PO SCH (10:42)
[2022-11-26] MEDS: DULoxetine 60 MG CAP PO SCH (10:42)
[2022-11-26] MEDS: Senokot S 8.6-50 MG TAB PO SCH (10:42)
[2022-11-26 15:33] VITALS: BP 147/77; TEMP 98
== END 2022-11-26 17:00 | disposition home or self-care (01) | DRG 196 ==
LOC: ERS 09:47 → ERHOLD 12:45 → 2NO 16:05 → ERHOLD 16:18 → 2NO 16:29 → OBSVTOIN 11-24 11:52
PROVIDERS: ADMIT Hospitalist; ATTEND Internal Medicine
DX: J84.9 Interstitial pulmonary disease, unspecified (principal); I50.33 Acute on chronic diastolic (congestive) heart failure; J96.21 Acute and chronic respiratory failure with hypoxia; F41.9 Anxiety disorder, unspecified; K21.9 Gastro-esophageal reflux disease without esophagitis; G89.29 Other chronic pain; Z96.653 Presence of artificial knee joint, bilateral; E66.9 Obesity, unspecified; G47.33 Obstructive sleep apnea (adult) (pediatric); I71.40 Abdominal aortic aneurysm, without rupture, unspecified; I27.23 Pulmonary hypertension due to lung diseases and hypoxia; Z88.5 Allergy status to narcotic agent; Z91.018 Allergy to other foods; Z79.899 Other long term (current) drug therapy; Z90.49 Acquired absence of other specified parts of digestive tract; Z90.710 Acquired absence of both cervix and uterus; Z68.34 Body mass index [BMI] 34.0-34.9, adult
CPT/HCPCS: 36415; 71045; 71046; 71275; 80048; 80053; 80061; 83735; 83880; 84145; 84484; 85025; 93005; 93306; 94640; 94760; 96374; 96375; J1650; J1940; J2920; J2930; J3475; J7620; J7626; Q9967

== ENCOUNTER 2022-12-23 08:55 | Outpatient (CLI) | payer MEDICARE | END 2022-12-23 08:56 | disposition home or self-care (01) | LOC: RAD 08:55 | PROVIDERS: ATTEND Internal Medicine Critical Care Medicine | DX: R06.00 Dyspnea, unspecified (principal); R09.89 Other specified symptoms and signs involving the circulatory and respiratory systems | CPT/HCPCS: 71046 ==

== ENCOUNTER 2022-12-24 20:47 | Inpatient (IN) | payer MEDICARE ==
[2022-12-24] MEDS ORDERED: Ketamine 50 MG/ML (10ML VIAL) ONE (22:08)
[2022-12-24 22:20] LABS: #Basophils 0.1 thou/uL (0.0-0.2); #Eosinphils 0.1 thou/uL (0.0-0.7); #Monocytes 0.5 thou/uL (0.11-0.59); #Neutrophils 5.2 thou/uL (1.40-6.50); %Basophils 0.7 % (0.0-1.0); %Eosinophils 1.9 % (0.0-10.0); %Lymphocytes 17.6 % (21.0-51.0); %Monocytes 7.5 % (0.0-10.0); %Neutrophils 71.9 % (42.0-75.0); Hematocrit 42.4 % (36.0-47.0); Hemoglobin 13.7 g/dL (12.0-16.0); Mean Corpuscular HGB CONC 32.3 g/dL (32.0-36.0); Mean Corpuscular Hemoglobin 30.1 pg (27.0-31.0); Mean Corpuscular Volume 93.2 fl (78.0-98.0); Platelet Count 162 10x3/uL (130-400); RBC Distribution Width 14.5 % (11.5-14.5); Red Blood Cell (RBC) Count 4.55 mill/uL (4.20-5.40); White Blood Cell (WBC) Count 7.2 10x3/uL (4.8-10.8)
[2022-12-24 22:30] LABS: INR-International Normal Ratio 1.1; PTT 28.5 sec (22.9-36.1); Prothrombin Time 14.1 sec (12.0-14.7)
[2022-12-24 22:37] LABS: ALT (SGPT) 53 U/L (8-55); AST (SGOT) 45 U/L (5-34); Albumin 3.6 g/dL (3.4-4.8); Alkaline Phosphatase 94 U/L (40-110); Anion Gap 15 mmol/L (10-20); BUN (Urea Nitrogen) 13 mg/dL (9.8-20.1); Bilirubin, Total 0.5 mg/dL (0.2-1.2); Calc. Creatinine Clearance 0 mL/min (70-130); Calcium 9.3 mg/dL (7.8-10.44); Carbon Dioxide 26 mmol/L (23-31); Chloride 102 mmol/L (98-107); Estimated GFR 71; Globulin 2.7 g/dL (2.4-3.5); Glucose 100 mg/dL (83-110); Potassium 4.3 mmol/L (3.5-5.1); Protein, Total 6.3 g/dL (5.8-8.1); Sodium 139 mmol/L (136-145)
[2022-12-24] MEDS ORDERED: Ondansetron PF 4 MG/2 ML Vial IVP PRN (23:11)
[2022-12-24] MEDS ORDERED: Furosemide 20 MG/2 ML VIAL ONE (23:26)
[2022-12-24] MEDS ORDERED: Furosemide 20 MG/2 ML VIAL SLOW IVP SCH (23:30)
[2022-12-25] MEDS: Acetaminophen 500 MG TAB PO SCH ×4 (00:48→18:18)
[2022-12-25 01:27] LABS: Bilirubin Negative (Negative); Blood, Urine Trace (Negative); CAUTI Indications for Culture Acute Hematuria; Clarity Turbid (Clear); Glucose, Urine (Dipstick) Normal (Negative); Ketone, Urine Negative (Negative); Leukocyte 250 Leu/uL (Negative); Nitrite Negative (Negative); Protein, Urine (Dipstick) Negative (Neg-Trace); RBC/HPF 0-3 HPF (0-3); Specific Gravity, Urine 1.009 (1.002-1.036); Squamous Epithelial 0-3 HPF (0-3); Urobilinogen Normal mg/dL (Less than 2)
[2022-12-25 01:28] LABS: Bacteria/HPF 1+ HPF (None Seen); Urine Culture Reflex No No
[2022-12-25 02:11] VITALS: BMI 35.9
[2022-12-25 04:19] LABS: #Eosinphils 0.1 thou/uL (0.0-0.7); #Monocytes 0.7 thou/uL (0.11-0.59); #Neutrophils 4.4 thou/uL (1.40-6.50); %Basophils 0.6 % (0.0-1.0); %Eosinophils 2.1 % (0.0-10.0); %Lymphocytes 20.8 % (21.0-51.0); %Neutrophils 66.2 % (42.0-75.0); Hematocrit 42.3 % (36.0-47.0); Hemoglobin 13.8 g/dL (12.0-16.0); Mean Corpuscular HGB CONC 32.6 g/dL (32.0-36.0); Mean Corpuscular Hemoglobin 29.6 pg (27.0-31.0); Mean Corpuscular Volume 90.8 fl (78.0-98.0); Mean Platelet Volume 9.8 fL (7.4-10.4); Platelet Count 141 10x3/uL (130-400); RBC Distribution Width 14.6 % (11.5-14.5); Red Blood Cell (RBC) Count 4.66 mill/uL (4.20-5.40); White Blood Cell (WBC) Count 6.7 10x3/uL (4.8-10.8)
[2022-12-25 04:33] LABS: INR-International Normal Ratio 1.1; PTT 28.7 sec (22.9-36.1); Prothrombin Time 14.3 sec (12.0-14.7)
[2022-12-25 04:42] LABS: Anion Gap 11 mmol/L (10-20); BUN (Urea Nitrogen) 13 mg/dL (9.8-20.1); Calc. Creatinine Clearance 76 mL/min (70-130); Calcium 9.2 mg/dL (7.8-10.44); Carbon Dioxide 31 mmol/L (23-31); Chloride 101 mmol/L (98-107); Estimated GFR 77; Glucose 96 mg/dL (83-110); Potassium 3.9 mmol/L (3.5-5.1); Sodium 139 mmol/L (136-145)
[2022-12-25] MEDS: traMADol HCl 50 MG TAB PO PRN ×2 (05:37→16:52)
[2022-12-25] MEDS: Ipratropium/Albuterol 3 ML NEB NEB SCH ×3 (07:34→19:07)
[2022-12-25] MEDS ORDERED: hydrALAZINE 20 MG/ML VIAL SLOW IVP PRN (08:03)
[2022-12-25] MEDS ORDERED: hydrALAZINE 20 MG/ML VIAL SLOW IVP SCH (08:15)
[2022-12-25] MEDS ORDERED: predniSONE 20 MG TAB PO SCH (09:00)
[2022-12-25] MEDS: Famotidine 20 MG TAB PO SCH ×2 (10:06→20:20)
[2022-12-25] MEDS: Famotidine/PF 20 mg/2ml Vial SLOW IVP SCH ×2 (10:06→20:20)
[2022-12-25] MEDS: DULoxetine 60 MG CAP PO SCH (10:06)
[2022-12-25] MEDS ORDERED: CEFAZOLIN 2 GM VIAL ONE (12:35)
[2022-12-25] MEDS ORDERED: Sodium Chloride 0.9% 100 ML ONE (12:36)
[2022-12-25] MEDS ORDERED: fentaNYL 50 mcg/mL 1 mL Vial ONE (13:24)
[2022-12-25] MEDS ORDERED: NEOSTIGMINE 3 MG/3 ML SYR 3 MG/3 ML SYRINGE ONE (13:29)
[2022-12-25] MEDS ORDERED: PROPOFOL 200 MG/20 ML VIAL ONE (13:29)
[2022-12-25] MEDS ORDERED: PHENYLEPHRINE-NS 100 MCG/ML 10 ML SYRINGE ONE (13:29)
[2022-12-25] MEDS ORDERED: Ondansetron PF 4 MG/2 ML Vial ONE (13:29)
[2022-12-25] MEDS ORDERED: Lidocaine 1% PF 5 ML VIAL ONE (13:29)
[2022-12-25] MEDS ORDERED: ePHEDrine Sulfate 50 MG/10 ML VIAL ONE (13:29)
[2022-12-25] MEDS ORDERED: Rocuronium Bromide 10 MG/ML (10ML VIAL) ONE (13:29)
[2022-12-25] MEDS ORDERED: Dexamethasone 20 MG/5 ML VIAL ONE (13:29)
[2022-12-25] MEDS ORDERED: Glycopyrrolate 0.2 MG/ML 5 ML SYRINGE ONE (13:29)
[2022-12-25] MEDS ORDERED: CEFAZOLIN 2 GM in Sodium Chloride 0.9% 100 ML IVPB SCH (14:00)
[2022-12-25] MEDS ORDERED: Ipratropium/Albuterol 3 ML NEB ONE (15:14)
[2022-12-25] MEDS ORDERED: Ketorolac Tromethamine 30 MG/ML VIAL IVP SCH (17:30)
[2022-12-25] MEDS: traMADol HCl 50 MG TAB PO SCH (18:24)
[2022-12-25] MEDS: CEFAZOLIN 2 GM in Sodium Chloride 0.9% 100 ML IVPB SCH (20:19)
[2022-12-25] MEDS: Sulfameth/Trimethoprim DS 800-160mg TAB PO SCH (20:20)
[2022-12-26] MEDS: Ketorolac Tromethamine 30 MG/ML VIAL IVP SCH ×4 (00:30→18:07)
[2022-12-26] MEDS: Acetaminophen 500 MG TAB PO SCH ×5 (00:30→18:05)
[2022-12-26] MEDS: traMADol HCl 50 MG TAB PO SCH ×5 (00:30→18:06)
[2022-12-26] MEDS: CEFAZOLIN 2 GM in Sodium Chloride 0.9% 100 ML IVPB SCH ×2 (06:00→12:42)
[2022-12-26] MEDS: Ipratropium/Albuterol 3 ML NEB NEB SCH ×3 (06:44→19:03)
[2022-12-26 07:05] LABS: #Monocytes 0.8 thou/uL (0.11-0.59); #Neutrophils 5.6 thou/uL (1.40-6.50); %Basophils 0.3 % (0.0-1.0); %Eosinophils 0.1 % (0.0-10.0); %Lymphocytes 13.1 % (21.0-51.0); %Monocytes 10.8 % (0.0-10.0); %Neutrophils 75.4 % (42.0-75.0); Hematocrit 41.1 % (36.0-47.0); Hemoglobin 12.9 g/dL (12.0-16.0); Mean Corpuscular HGB CONC 31.4 g/dL (32.0-36.0); Mean Corpuscular Hemoglobin 30.1 pg (27.0-31.0); Mean Corpuscular Volume 95.8 fl (78.0-98.0); Mean Platelet Volume 9.3 fL (7.4-10.4); Platelet Count 144 10x3/uL (130-400); RBC Distribution Width 14.6 % (11.5-14.5); Red Blood Cell (RBC) Count 4.29 mill/uL (4.20-5.40); White Blood Cell (WBC) Count 7.5 10x3/uL (4.8-10.8)
[2022-12-26 08:43] LABS: Anion Gap 16 mmol/L (10-20); BUN (Urea Nitrogen) 16 mg/dL (9.8-20.1); Calc. Creatinine Clearance 71 mL/min (70-130); Calcium 8.9 mg/dL (7.8-10.44); Carbon Dioxide 25 mmol/L (23-31); Chloride 99 mmol/L (98-107); Estimated GFR 72; Glucose 98 mg/dL (83-110); Potassium 4.7 mmol/L (3.5-5.1); Sodium 135 mmol/L (136-145)
[2022-12-26] MEDS: Sulfameth/Trimethoprim DS 800-160mg TAB PO SCH ×2 (10:03→20:54)
[2022-12-26] MEDS: Famotidine 20 MG TAB PO SCH ×2 (10:03→20:54)
[2022-12-26] MEDS: DULoxetine 60 MG CAP PO SCH (10:04)
[2022-12-26] MEDS: Famotidine/PF 20 mg/2ml Vial SLOW IVP SCH ×2 (10:05→20:54)
[2022-12-27] MEDS: traMADol HCl 50 MG TAB PO SCH ×4 (00:42→17:45)
[2022-12-27] MEDS: Ketorolac Tromethamine 30 MG/ML VIAL IVP SCH ×4 (00:42→17:46)
[2022-12-27] MEDS: Acetaminophen 500 MG TAB PO SCH ×4 (00:42→17:46)
[2022-12-27 06:33] LABS: #Basophils 0.1 thou/uL (0.0-0.2); #Eosinphils 0.3 thou/uL (0.0-0.7); #Monocytes 1.1 thou/uL (0.11-0.59); #Neutrophils 4.4 thou/uL (1.40-6.50); %Basophils 0.9 % (0.0-1.0); %Eosinophils 3.2 % (0.0-10.0); %Monocytes 12.9 % (0.0-10.0); %Neutrophils 53.5 % (42.0-75.0); Hematocrit 38.7 % (36.0-47.0); Hemoglobin 12.3 g/dL (12.0-16.0); Mean Corpuscular HGB CONC 31.8 g/dL (32.0-36.0); Mean Corpuscular Hemoglobin 30.3 pg (27.0-31.0); Mean Corpuscular Volume 95.3 fl (78.0-98.0); Mean Platelet Volume 9.7 fL (7.4-10.4); Platelet Count 154 10x3/uL (130-400); RBC Distribution Width 14.9 % (11.5-14.5); Red Blood Cell (RBC) Count 4.06 mill/uL (4.20-5.40); White Blood Cell (WBC) Count 8.2 10x3/uL (4.8-10.8)
[2022-12-27] MEDS: Ipratropium/Albuterol 3 ML NEB NEB SCH ×3 (06:56→19:02)
[2022-12-27] MEDS: Famotidine 20 MG TAB PO SCH (08:54)
[2022-12-27] MEDS: Sulfameth/Trimethoprim DS 800-160mg TAB PO SCH ×2 (08:55→21:23)
[2022-12-27] MEDS: DULoxetine 60 MG CAP PO SCH (09:00)
[2022-12-27 09:30] LABS: Anion Gap 15 mmol/L (10-20); BUN (Urea Nitrogen) 23 mg/dL (9.8-20.1); Calc. Creatinine Clearance 47 mL/min (70-130); Carbon Dioxide 23 mmol/L (23-31); Chloride 94 mmol/L (98-107); Estimated GFR 44; Glucose 75 mg/dL (83-110); Potassium 4.6 mmol/L (3.5-5.1); Sodium 127 mmol/L (136-145)
[2022-12-27] MEDS ORDERED: Magnesium Citrate 300 ML BOT PO SCH (19:15)
[2022-12-28] MEDS: Ketorolac Tromethamine 30 MG/ML VIAL IVP SCH ×3 (00:23→11:28)
[2022-12-28] MEDS: traMADol HCl 50 MG TAB PO SCH ×6 (00:24→23:25)
[2022-12-28] MEDS: Acetaminophen 500 MG TAB PO SCH ×6 (00:24→23:24)
[2022-12-28] MEDS: Ipratropium/Albuterol 3 ML NEB NEB SCH ×2 (06:44→12:14)
[2022-12-28] MEDS ORDERED: predniSONE 5 MG TAB PO SCH (09:00)
[2022-12-28] MEDS: DULoxetine 60 MG CAP PO SCH (09:49)
[2022-12-28] MEDS: predniSONE 20 MG TAB PO SCH (09:49)
[2022-12-28] MEDS: Sulfameth/Trimethoprim DS 800-160mg TAB PO SCH ×2 (09:49→20:58)
[2022-12-28] MEDS: Famotidine 20 MG TAB PO SCH (09:53)
[2022-12-28] MEDS ORDERED: Sodium Chloride 0.9% 500 ML IV SCH (11:45)
[2022-12-28] MEDS: busPIRone HCl 5 MG TAB PO SCH ×2 (14:20→20:59)
[2022-12-28] MEDS: Arformoterol 15 MCG/2 ML NEB NEB SCH (19:02)
[2022-12-28] MEDS: Ipratropium/Albuterol 3 ML NEB NEB PRN (19:03)
[2022-12-29] MEDS: Acetaminophen 500 MG TAB PO SCH ×4 (05:37→23:13)
[2022-12-29] MEDS: traMADol HCl 50 MG TAB PO SCH ×4 (05:37→23:14)
[2022-12-29] MEDS ORDERED: Non-Formulary Item 1 EACH (Prednisone [Prednisone] 10 MG Tablet) PO SCH (09:00)
[2022-12-29] MEDS: predniSONE 20 MG TAB PO SCH (09:18)
[2022-12-29] MEDS: Famotidine 20 MG TAB PO SCH (09:18)
[2022-12-29] MEDS: DULoxetine 60 MG CAP PO SCH (09:19)
[2022-12-29] MEDS: busPIRone HCl 5 MG TAB PO SCH ×3 (09:19→20:43)
[2022-12-29] MEDS: Arformoterol 15 MCG/2 ML NEB NEB SCH ×2 (10:20→18:54)
[2022-12-30] MEDS: Ipratropium/Albuterol 3 ML NEB NEB PRN ×2 (01:18→19:30)
[2022-12-30] MEDS ORDERED: Piperacillin/Tazobactam 3.375 GM in Sodium Chloride 0.9% 100 ML IVPB SCH ×2 (02:00→06:00)
[2022-12-30] MEDS ORDERED: predniSONE 20 MG TAB PO SCH (02:00)
[2022-12-30] MEDS: traMADol HCl 50 MG TAB PO PRN (03:02)
[2022-12-30 03:24] LABS: #Eosinphils 0.1 thou/uL (0.0-0.7); #Monocytes 0.6 thou/uL (0.11-0.59); #Neutrophils 4.3 thou/uL (1.40-6.50); %Basophils 0.6 % (0.0-1.0); %Lymphocytes 22.3 % (21.0-51.0); %Monocytes 9.6 % (0.0-10.0); %Neutrophils 65.2 % (42.0-75.0); Hematocrit 37.8 % (36.0-47.0); Hemoglobin 12.2 g/dL (12.0-16.0); Mean Corpuscular HGB CONC 32.3 g/dL (32.0-36.0); Mean Corpuscular Hemoglobin 30.3 pg (27.0-31.0); Mean Corpuscular Volume 93.8 fl (78.0-98.0); Mean Platelet Volume 9.8 fL (7.4-10.4); Platelet Count 180 10x3/uL (130-400); RBC Distribution Width 15.4 % (11.5-14.5); Red Blood Cell (RBC) Count 4.03 mill/uL (4.20-5.40); White Blood Cell (WBC) Count 6.6 10x3/uL (4.8-10.8)
[2022-12-30 03:55] LABS: ALT (SGPT) 12 U/L (8-55); AST (SGOT) 31 U/L (5-34); Albumin 3.6 g/dL (3.4-4.8); Alkaline Phosphatase 115 U/L (40-110); Anion Gap 13 mmol/L (10-20); BUN (Urea Nitrogen) 11 mg/dL (9.8-20.1); Bilirubin, Total 0.6 mg/dL (0.2-1.2); Calc. Creatinine Clearance 71 mL/min (70-130); Calcium 9.2 mg/dL (7.8-10.44); Carbon Dioxide 29 mmol/L (23-31); Chloride 98 mmol/L (98-107); Estimated GFR 72; Globulin 2.9 g/dL (2.4-3.5); Glucose 85 mg/dL (83-110); Potassium 4.4 mmol/L (3.5-5.1); Protein, Total 6.5 g/dL (5.8-8.1); Sodium 136 mmol/L (136-145)
[2022-12-30] MEDS: Acetaminophen 500 MG TAB PO SCH ×4 (05:40→23:19)
[2022-12-30] MEDS: traMADol HCl 50 MG TAB PO SCH ×4 (05:41→23:18)
[2022-12-30] MEDS ORDERED: Piperacillin/Tazobactam 4.5 GM in Sodium Chloride 0.9% 100 ML IVPB SCH (06:00)
[2022-12-30] MEDS: Arformoterol 15 MCG/2 ML NEB NEB SCH ×2 (07:26→19:30)
[2022-12-30] MEDS: Famotidine 20 MG TAB PO SCH (08:45)
[2022-12-30] MEDS: predniSONE 20 MG TAB PO SCH (08:45)
[2022-12-30] MEDS: DULoxetine 60 MG CAP PO SCH (08:45)
[2022-12-30] MEDS: busPIRone HCl 5 MG TAB PO SCH ×3 (08:45→20:00)
[2022-12-30] MEDS ORDERED: Furosemide 20 MG/2 ML VIAL SLOW IVP SCH (09:30)
[2022-12-31] MEDS: Acetaminophen 500 MG TAB PO SCH ×2 (06:02→11:46)
[2022-12-31] MEDS: traMADol HCl 50 MG TAB PO SCH ×2 (06:02→11:45)
[2022-12-31] MEDS: Arformoterol 15 MCG/2 ML NEB NEB SCH (07:49)
[2022-12-31] MEDS ORDERED: predniSONE 5 MG TAB PO SCH (09:00)
[2022-12-31] MEDS: traMADol HCl 50 MG TAB PO PRN (10:15)
[2022-12-31] MEDS: Famotidine 20 MG TAB PO SCH (10:17)
[2022-12-31] MEDS: busPIRone HCl 5 MG TAB PO SCH (10:17)
[2022-12-31] MEDS: DULoxetine 60 MG CAP PO SCH (10:18)
[2022-12-31] MEDS: predniSONE 20 MG TAB PO SCH (10:18)
[2022-12-31 12:11] VITALS: BP 128/81; TEMP 98
[2023-01-03] MEDS ORDERED: predniSONE 5 MG TAB PO SCH (09:00)
[2023-01-06] MEDS ORDERED: predniSONE 20 MG TAB PO SCH (09:00)
== END 2022-12-31 13:20 | DRG 493 ==
LOC: ERS 20:47 → IMCU/EMU 22:50 → SURG A 12-25 16:17
PROVIDERS: ADMIT Surgery; ATTEND Surgery
PROC: 0QSK04Z Reposition Left Fibula with Internal Fixation Device, Open Approach (ICD-10-PCS; principal; 2022-12-25)
PROC: 0QSH04Z Reposition Left Tibia with Internal Fixation Device, Open Approach (ICD-10-PCS; 2022-12-25)
PROC: 0QSH04Z Reposition Left Tibia with Internal Fixation Device, Open Approach (ICD-10-PCS; 2022-12-25)
DX: S82.852B Displaced trimalleolar fracture of left lower leg, initial encounter for open fracture type I or II (principal); I13.0 Hypertensive heart and chronic kidney disease with heart failure and stage 1 through stage 4 chronic kidney disease, or unspecified chronic kidney disease; I50.32 Chronic diastolic (congestive) heart failure; N39.0 Urinary tract infection, site not specified; J84.9 Interstitial pulmonary disease, unspecified; J96.11 Chronic respiratory failure with hypoxia; G89.29 Other chronic pain; K21.9 Gastro-esophageal reflux disease without esophagitis; M19.90 Unspecified osteoarthritis, unspecified site; G62.9 Polyneuropathy, unspecified; Z96.653 Presence of artificial knee joint, bilateral; F41.9 Anxiety disorder, unspecified; D63.1 Anemia in chronic kidney disease; J44.9 Chronic obstructive pulmonary disease, unspecified; N18.9 Chronic kidney disease, unspecified; I27.20 Pulmonary hypertension, unspecified; Z90.49 Acquired absence of other specified parts of digestive tract; Z90.710 Acquired absence of both cervix and uterus; Z98.890 Other specified postprocedural states; Z88.5 Allergy status to narcotic agent; Z91.018 Allergy to other foods; Y92.9 Unspecified place or not applicable
CPT/HCPCS: 27816; 36415; 70450; 71045; 72125; 80048; 80053; 81001; 83880; 85025; 85610; 85730; 86850; 86900; 86901; 87086; 93005; 94640; 96374; 99152; C1713; G0390; J0360; J1100; J1650; J1885; J1940; J2405; J2543; J2704; J3010; J3490; J7030; J7512; J7620

== ENCOUNTER 2023-02-24 10:59 | Outpatient (CLI) | payer MEDICARE | END 2023-02-24 11:00 | disposition home or self-care (01) | LOC: RAD 10:59 | PROVIDERS: ATTEND Internal Medicine Critical Care Medicine | DX: R06.00 Dyspnea, unspecified (principal); I51.7 Cardiomegaly; J84.10 Pulmonary fibrosis, unspecified | CPT/HCPCS: 71046 ==

== ENCOUNTER 2023-03-31 09:43 | Inpatient (IN) | payer MEDICARE ==
[2023-03-31] MEDS ORDERED: Aspirin Chewable 81 MG TAB ONE (09:58)
[2023-03-31 10:27] LABS: #Basophils 0.1 thou/uL (0.0-0.2); #Eosinphils 0.2 thou/uL (0.0-0.7); #Monocytes 0.8 thou/uL (0.11-0.59); #Neutrophils 6.4 thou/uL (1.40-6.50); %Basophils 0.7 % (0.0-1.0); %Eosinophils 1.9 % (0.0-10.0); %Lymphocytes 25.6 % (21.0-51.0); %Monocytes 7.8 % (0.0-10.0); %Neutrophils 63.7 % (42.0-75.0); Hematocrit 44.7 % (36.0-47.0); Hemoglobin 13.5 g/dL (12.0-16.0); Mean Corpuscular HGB CONC 30.2 g/dL (32.0-36.0); Mean Corpuscular Hemoglobin 28.7 pg (27.0-31.0); Mean Corpuscular Volume 95.1 fl (78.0-98.0); Mean Platelet Volume 9.5 fL (7.4-10.4); Platelet Count 167 10x3/uL (130-400); RBC Distribution Width 13.8 % (11.5-14.5)
[2023-03-31 10:58] LABS: Troponin I 0.024 ng/mL (< 0.028)
[2023-03-31 11:38] LABS: SARS-CoV-2 NAA Rapid Test Not Detected (NotDetected)
[2023-03-31 12:20] LABS: ALT (SGPT) 30 U/L (8-55); AST (SGOT) 25 U/L (5-34); Albumin 3.5 g/dL (3.4-4.8); Alkaline Phosphatase 77 U/L (40-110); Anion Gap 14 mmol/L (10-20); BUN (Urea Nitrogen) 19 mg/dL (9.8-20.1); Calc. Creatinine Clearance 0 mL/min (70-130); Carbon Dioxide 31 mmol/L (23-31); Chloride 98 mmol/L (98-107); Estimated GFR 68; Globulin 2.3 g/dL (2.4-3.5); Glucose 105 mg/dL (83-110); Magnesium 2.2 mg/dL (1.6-2.6); Potassium 4.1 mmol/L (3.5-5.1); Protein, Total 5.8 g/dL (5.8-8.1); Sodium 139 mmol/L (136-145)
[2023-03-31 12:30] LABS: Bacteria/HPF None Seen HPF (None Seen); Bilirubin Negative (Negative); Blood, Urine Negative (Negative); CAUTI Indications for Culture Dysuria,urgency,freq; Clarity Clear (Clear); Glucose, Urine (Dipstick) Normal (Negative); Ketone, Urine Negative (Negative); Leukocyte Negative Leu/uL (Negative); Nitrite Negative (Negative); Protein, Urine (Dipstick) Negative (Neg-Trace); RBC/HPF None Seen HPF (0-3); Specific Gravity, Urine 1.011 (1.002-1.036); Squamous Epithelial None Seen HPF (0-3); Urobilinogen Normal mg/dL (Less than 2); WBC/HPF 0-3 HPF (0-3); pH, Urine 5.5 (5.0-9.0)
[2023-03-31 12:35] LABS: Urine Culture Reflex No No
[2023-03-31] MEDS ORDERED: Ondansetron PF 4 MG/2 ML Vial IVP PRN (12:42)
[2023-03-31] MEDS ORDERED: Ondansetron ODT 4 MG TAB PO PRN (12:42)
[2023-03-31 13:28] LABS: Lactic Acid 2.2 mmol/L (0.5-2.2)
[2023-03-31] MEDS ORDERED: Iopamidol-370 76% 500 ML MDV (1 ML CHARGE) ONE (14:09)
[2023-03-31 16:16] VITALS: BMI 35.8
[2023-03-31] MEDS: busPIRone HCl 5 MG TAB PO SCH ×2 (16:17→20:25)
[2023-03-31] MEDS: Acetaminophen 500 MG TAB PO SCH ×2 (18:09→20:23)
[2023-03-31] MEDS: Arformoterol 15 MCG/2 ML NEB NEB SCH (18:55)
[2023-03-31] MEDS: Budesonide 0.5 MG/2 ML NEB NEB SCH (18:56)
[2023-04-01 06:29] LABS: #Eosinphils 0.1 thou/uL (0.0-0.7); #Monocytes 1.1 thou/uL (0.11-0.59); #Neutrophils 5.3 thou/uL (1.40-6.50); %Basophils 0.3 % (0.0-1.0); %Eosinophils 0.8 % (0.0-10.0); %Lymphocytes 16.9 % (21.0-51.0); %Monocytes 13.5 % (0.0-10.0); %Neutrophils 68.1 % (42.0-75.0); Hematocrit 43.6 % (36.0-47.0); Hemoglobin 13.2 g/dL (12.0-16.0); Mean Corpuscular HGB CONC 30.3 g/dL (32.0-36.0); Mean Corpuscular Hemoglobin 28.6 pg (27.0-31.0); Mean Corpuscular Volume 94.6 fl (78.0-98.0); Mean Platelet Volume 10.2 fL (7.4-10.4); Platelet Count 178 10x3/uL (130-400); RBC Distribution Width 13.9 % (11.5-14.5); Red Blood Cell (RBC) Count 4.61 mill/uL (4.20-5.40); White Blood Cell (WBC) Count 7.8 10x3/uL (4.8-10.8)
[2023-04-01 07:05] LABS: Anion Gap 12 mmol/L (10-20); BUN (Urea Nitrogen) 16 mg/dL (9.8-20.1); Calc. Creatinine Clearance 72 mL/min (70-130); Calcium 9.6 mg/dL (7.8-10.44); Carbon Dioxide 32 mmol/L (23-31); Chloride 100 mmol/L (98-107); Estimated GFR 74; Glucose 96 mg/dL (83-110); Sodium 139 mmol/L (136-145)
[2023-04-01] MEDS: Acetaminophen 500 MG TAB PO SCH ×4 (07:11→23:56)
[2023-04-01] MEDS: Arformoterol 15 MCG/2 ML NEB NEB SCH (07:12)
[2023-04-01] MEDS: Budesonide 0.5 MG/2 ML NEB NEB SCH (07:14)
[2023-04-01] MEDS ORDERED: Ipratropium/Albuterol 3 ML NEB NEB PRN (08:15)
[2023-04-01] MEDS ORDERED: Furosemide 20 MG (2 mL) VIAL SLOW IVP SCH (08:15)
[2023-04-01] MEDS: busPIRone HCl 5 MG TAB PO SCH ×4 (08:36→20:35)
[2023-04-01] MEDS ORDERED: predniSONE 20 MG TAB PO SCH (09:00)
[2023-04-01] MEDS: DULoxetine 60 MG CAP PO SCH (09:02)
[2023-04-01] MEDS: cefTRIAXone\\ROCEPHIN 2 GM in Sodium Chloride 0.9% 100 ML IVPB SCH (09:59)
[2023-04-01] MEDS: Ipratropium/Albuterol 3 ML NEB NEB SCH ×4 (10:11→21:35)
[2023-04-01] MEDS: Enoxaparin 40 MG (0.4 mL) SYRINGE SC SCH (11:37)
[2023-04-01] MEDS: methylPREDNISolone Sod Succ 40 MG VIAL IVP SCH ×2 (11:37→17:08)
[2023-04-01] MEDS: Famotidine 20 MG TAB PO SCH ×2 (11:37→20:26)
[2023-04-02] MEDS: Ipratropium/Albuterol 3 ML NEB NEB SCH ×6 (01:39→23:00)
[2023-04-02] MEDS: methylPREDNISolone Sod Succ 40 MG VIAL IVP SCH ×4 (03:17→20:08)
[2023-04-02 04:13] LABS: #Monocytes 0.3 thou/uL (0.11-0.59); #Neutrophils 5.2 thou/uL (1.40-6.50); %Basophils 0.2 % (0.0-1.0); %Lymphocytes 11.4 % (21.0-51.0); %Monocytes 5.1 % (0.0-10.0); %Neutrophils 82.8 % (42.0-75.0); Hematocrit 42.7 % (36.0-47.0); Hemoglobin 13.3 g/dL (12.0-16.0); Mean Corpuscular HGB CONC 31.1 g/dL (32.0-36.0); Mean Corpuscular Hemoglobin 28.8 pg (27.0-31.0); Mean Corpuscular Volume 92.4 fl (78.0-98.0); Mean Platelet Volume 9.8 fL (7.4-10.4); Platelet Count 165 10x3/uL (130-400); RBC Distribution Width 13.9 % (11.5-14.5); Red Blood Cell (RBC) Count 4.62 mill/uL (4.20-5.40); White Blood Cell (WBC) Count 6.2 10x3/uL (4.8-10.8)
[2023-04-02 04:41] LABS: Anion Gap 14 mmol/L (10-20); BUN (Urea Nitrogen) 16 mg/dL (9.8-20.1); Calc. Creatinine Clearance 80 mL/min (70-130); Carbon Dioxide 29 mmol/L (23-31); Chloride 100 mmol/L (98-107); Estimated GFR 84; Glucose 120 mg/dL (83-110); Potassium 4.9 mmol/L (3.5-5.1); Sodium 138 mmol/L (136-145)
[2023-04-02] MEDS: Acetaminophen 500 MG TAB PO SCH ×5 (05:29→20:08)
[2023-04-02] MEDS: busPIRone HCl 5 MG TAB PO SCH (07:55)
[2023-04-02] MEDS: DULoxetine 60 MG CAP PO SCH (07:56)
[2023-04-02] MEDS: Famotidine 20 MG TAB PO SCH ×2 (07:56→20:07)
[2023-04-02] MEDS: Enoxaparin 40 MG (0.4 mL) SYRINGE SC SCH (07:56)
[2023-04-02] MEDS: cefTRIAXone\\ROCEPHIN 2 GM in Sodium Chloride 0.9% 100 ML IVPB SCH (09:43)
[2023-04-02] MEDS: Budesonide 0.5 MG/2 ML NEB INH SCH (18:24)
[2023-04-03] MEDS: Ipratropium/Albuterol 3 ML NEB NEB SCH ×6 (02:16→23:56)
[2023-04-03] MEDS: methylPREDNISolone Sod Succ 40 MG VIAL IVP SCH ×3 (02:46→16:47)
[2023-04-03] MEDS: Acetaminophen 500 MG TAB PO SCH ×5 (02:53→23:42)
[2023-04-03 05:08] LABS: #Monocytes 0.3 thou/uL (0.11-0.59); #Neutrophils 9.1 thou/uL (1.40-6.50); %Basophils 0.1 % (0.0-1.0); %Lymphocytes 5.9 % (21.0-51.0); %Monocytes 3.3 % (0.0-10.0); %Neutrophils 90.3 % (42.0-75.0); Hematocrit 46.9 % (36.0-47.0); Hemoglobin 14.5 g/dL (12.0-16.0); Mean Corpuscular HGB CONC 30.9 g/dL (32.0-36.0); Mean Corpuscular Hemoglobin 28.8 pg (27.0-31.0); Mean Corpuscular Volume 93.2 fl (78.0-98.0); Mean Platelet Volume 10.2 fL (7.4-10.4); Platelet Count 193 10x3/uL (130-400); RBC Distribution Width 13.7 % (11.5-14.5); Red Blood Cell (RBC) Count 5.03 mill/uL (4.20-5.40); White Blood Cell (WBC) Count 10.1 10x3/uL (4.8-10.8)
[2023-04-03 05:32] LABS: Anion Gap 11 mmol/L (10-20); BUN (Urea Nitrogen) 18 mg/dL (9.8-20.1); Calc. Creatinine Clearance 77 mL/min (70-130); Calcium 9.3 mg/dL (7.8-10.44); Carbon Dioxide 34 mmol/L (23-31); Chloride 97 mmol/L (98-107); Estimated GFR 79; Glucose 122 mg/dL (83-110); Potassium 5.2 mmol/L (3.5-5.1); Sodium 137 mmol/L (136-145)
[2023-04-03] MEDS: DULoxetine 60 MG CAP PO SCH (08:37)
[2023-04-03] MEDS: cefTRIAXone\\ROCEPHIN 2 GM in Sodium Chloride 0.9% 100 ML IVPB SCH (08:37)
[2023-04-03] MEDS: Famotidine 20 MG TAB PO SCH ×2 (08:46→23:42)
[2023-04-03] MEDS: Enoxaparin 40 MG (0.4 mL) SYRINGE SC SCH (08:47)
[2023-04-03] MEDS: Budesonide 0.5 MG/2 ML NEB INH SCH ×2 (08:48→18:44)
[2023-04-04] MEDS: methylPREDNISolone Sod Succ 40 MG VIAL IVP SCH ×4 (02:32→20:44)
[2023-04-04] MEDS: Ipratropium/Albuterol 3 ML NEB NEB SCH ×6 (03:08→23:38)
[2023-04-04] MEDS: Acetaminophen 500 MG TAB PO SCH ×4 (05:54→22:23)
[2023-04-04] MEDS: Budesonide 0.5 MG/2 ML NEB INH SCH ×2 (06:34→19:57)
[2023-04-04 06:58] LABS: #Monocytes 0.3 thou/uL (0.11-0.59); #Neutrophils 8.4 thou/uL (1.40-6.50); %Lymphocytes 5.6 % (21.0-51.0); %Monocytes 3.4 % (0.0-10.0); %Neutrophils 90.5 % (42.0-75.0); Hematocrit 47.8 % (36.0-47.0); Hemoglobin 14.7 g/dL (12.0-16.0); Mean Corpuscular HGB CONC 30.8 g/dL (32.0-36.0); Mean Corpuscular Hemoglobin 28.7 pg (27.0-31.0); Mean Corpuscular Volume 93.2 fl (78.0-98.0); Mean Platelet Volume 9.7 fL (7.4-10.4); Platelet Count 188 10x3/uL (130-400); RBC Distribution Width 13.6 % (11.5-14.5); Red Blood Cell (RBC) Count 5.13 mill/uL (4.20-5.40); White Blood Cell (WBC) Count 9.3 10x3/uL (4.8-10.8)
[2023-04-04 07:23] LABS: ALT (SGPT) 18 U/L (8-55); AST (SGOT) 14 U/L (5-34); Albumin 3.5 g/dL (3.4-4.8); Alkaline Phosphatase 63 U/L (40-110); Anion Gap 12 mmol/L (10-20); BUN (Urea Nitrogen) 21 mg/dL (9.8-20.1); Bilirubin, Total 0.4 mg/dL (0.2-1.2); Calc. Creatinine Clearance 80 mL/min (70-130); Calcium 9.2 mg/dL (7.8-10.44); Carbon Dioxide 30 mmol/L (23-31); Chloride 98 mmol/L (98-107); Estimated GFR 83; Globulin 2.6 g/dL (2.4-3.5); Glucose 118 mg/dL (83-110); Magnesium 2.4 mg/dL (1.6-2.6); Protein, Total 6.1 g/dL (5.8-8.1); Sodium 135 mmol/L (136-145)
[2023-04-04] MEDS: Enoxaparin 40 MG (0.4 mL) SYRINGE SC SCH (08:23)
[2023-04-04] MEDS: DULoxetine 60 MG CAP PO SCH (08:24)
[2023-04-04] MEDS: Famotidine 20 MG TAB PO SCH ×2 (08:24→20:44)
[2023-04-04] MEDS: cefTRIAXone\\ROCEPHIN 2 GM in Sodium Chloride 0.9% 100 ML IVPB SCH (08:24)
[2023-04-05] MEDS: Ipratropium/Albuterol 3 ML NEB NEB SCH ×6 (03:15→22:46)
[2023-04-05] MEDS: Acetaminophen 500 MG TAB PO SCH ×3 (05:39→16:34)
[2023-04-05] MEDS: Budesonide 0.5 MG/2 ML NEB INH SCH ×2 (06:37→18:44)
[2023-04-05] MEDS: Enoxaparin 40 MG (0.4 mL) SYRINGE SC SCH (08:43)
[2023-04-05] MEDS: DULoxetine 60 MG CAP PO SCH (08:43)
[2023-04-05] MEDS: cefTRIAXone\\ROCEPHIN 2 GM in Sodium Chloride 0.9% 100 ML IVPB SCH (08:43)
[2023-04-05] MEDS: methylPREDNISolone Sod Succ 40 MG VIAL IVP SCH ×2 (08:44→21:02)
[2023-04-05] MEDS: Famotidine 20 MG TAB PO SCH ×2 (08:44→21:01)
[2023-04-05 09:09] LABS: #Monocytes 0.6 thou/uL (0.11-0.59); #Neutrophils 7.2 thou/uL (1.40-6.50); %Basophils 0.1 % (0.0-1.0); %Lymphocytes 8.5 % (21.0-51.0); %Monocytes 6.6 % (0.0-10.0); %Neutrophils 84.1 % (42.0-75.0); Hemoglobin 14.9 g/dL (12.0-16.0); Mean Corpuscular Volume 93.6 fl (78.0-98.0); Mean Platelet Volume 10.2 fL (7.4-10.4); Platelet Count 198 10x3/uL (130-400); RBC Distribution Width 13.5 % (11.5-14.5); Red Blood Cell (RBC) Count 5.13 mill/uL (4.20-5.40); White Blood Cell (WBC) Count 8.6 10x3/uL (4.8-10.8)
[2023-04-05] MEDS ORDERED: Benzonatate 100 MG CAP PO PRN (14:48)
[2023-04-05] MEDS: Cefdinir 300 MG CAP PO SCH (21:01)
[2023-04-06] MEDS: Acetaminophen 500 MG TAB PO SCH ×4 (00:09→18:17)
[2023-04-06] MEDS: Ipratropium/Albuterol 3 ML NEB NEB SCH ×6 (02:10→22:08)
[2023-04-06 07:35] LABS: #Monocytes 0.7 thou/uL (0.11-0.59); #Neutrophils 7.8 thou/uL (1.40-6.50); %Basophils 0.1 % (0.0-1.0); %Lymphocytes 8.4 % (21.0-51.0); %Monocytes 7.2 % (0.0-10.0); %Neutrophils 83.8 % (42.0-75.0); Hematocrit 51.1 % (36.0-47.0); Hemoglobin 15.5 g/dL (12.0-16.0); Mean Corpuscular HGB CONC 30.3 g/dL (32.0-36.0); Mean Corpuscular Hemoglobin 28.8 pg (27.0-31.0); Mean Corpuscular Volume 94.8 fl (78.0-98.0); Mean Platelet Volume 10.4 fL (7.4-10.4); Platelet Count 175 10x3/uL (130-400); RBC Distribution Width 13.8 % (11.5-14.5); Red Blood Cell (RBC) Count 5.39 mill/uL (4.20-5.40); White Blood Cell (WBC) Count 9.3 10x3/uL (4.8-10.8)
[2023-04-06] MEDS: Budesonide 0.5 MG/2 ML NEB INH SCH ×2 (07:55→19:08)
[2023-04-06 08:02] LABS: ALT (SGPT) 18 U/L (8-55); AST (SGOT) 15 U/L (5-34); Albumin 3.2 g/dL (3.4-4.8); Alkaline Phosphatase 57 U/L (40-110); Anion Gap 12 mmol/L (10-20); BUN (Urea Nitrogen) 22 mg/dL (9.8-20.1); Bilirubin, Total 0.6 mg/dL (0.2-1.2); Calc. Creatinine Clearance 86 mL/min (70-130); Calcium 8.8 mg/dL (7.8-10.44); Carbon Dioxide 32 mmol/L (23-31); Chloride 98 mmol/L (98-107); Estimated GFR 87; Globulin 2.4 g/dL (2.4-3.5); Glucose 104 mg/dL (83-110); Magnesium 2.3 mg/dL (1.6-2.6); Phosphorus 3.6 mg/dL (2.3-4.7); Potassium 4.6 mmol/L (3.5-5.1); Protein, Total 5.6 g/dL (5.8-8.1); Sodium 137 mmol/L (136-145)
[2023-04-06] MEDS: Famotidine 20 MG TAB PO SCH ×2 (08:46→21:29)
[2023-04-06] MEDS: Cefdinir 300 MG CAP PO SCH ×2 (08:46→21:30)
[2023-04-06] MEDS: methylPREDNISolone Sod Succ 40 MG VIAL IVP SCH (08:46)
[2023-04-06] MEDS: DULoxetine 60 MG CAP PO SCH (08:46)
[2023-04-06] MEDS: Enoxaparin 40 MG (0.4 mL) SYRINGE SC SCH (08:47)
[2023-04-07] MEDS: Acetaminophen 500 MG TAB PO SCH ×4 (00:29→17:19)
[2023-04-07] MEDS: Ipratropium/Albuterol 3 ML NEB NEB SCH ×6 (02:34→23:28)
[2023-04-07] MEDS: Budesonide 0.5 MG/2 ML NEB INH SCH ×2 (07:56→19:18)
[2023-04-07] MEDS: DULoxetine 60 MG CAP PO SCH (08:16)
[2023-04-07] MEDS: Cefdinir 300 MG CAP PO SCH ×2 (08:16→21:17)
[2023-04-07] MEDS: Famotidine 20 MG TAB PO SCH ×2 (08:16→21:17)
[2023-04-07] MEDS: methylPREDNISolone Sod Succ 40 MG VIAL IVP SCH (08:17)
[2023-04-07] MEDS: Enoxaparin 40 MG (0.4 mL) SYRINGE SC SCH (08:17)
[2023-04-08] MEDS: Ipratropium/Albuterol 3 ML NEB NEB SCH ×6 (02:32→22:00)
[2023-04-08] MEDS: Acetaminophen 500 MG TAB PO SCH ×4 (03:08→20:09)
[2023-04-08 03:56] LABS: Anion Gap 9 mmol/L (10-20); BUN (Urea Nitrogen) 28 mg/dL (9.8-20.1); Calc. Creatinine Clearance 80 mL/min (70-130); Calcium 8.5 mg/dL (7.8-10.44); Carbon Dioxide 34 mmol/L (23-31); Chloride 98 mmol/L (98-107); Estimated GFR 83; Glucose 89 mg/dL (83-110); Potassium 4.4 mmol/L (3.5-5.1); Sodium 137 mmol/L (136-145)
[2023-04-08] MEDS: Budesonide 0.5 MG/2 ML NEB INH SCH ×2 (06:48→19:25)
[2023-04-08] MEDS: methylPREDNISolone Sod Succ 40 MG VIAL IVP SCH (07:59)
[2023-04-08] MEDS: Cefdinir 300 MG CAP PO SCH ×2 (08:00→20:05)
[2023-04-08] MEDS: Enoxaparin 40 MG (0.4 mL) SYRINGE SC SCH (08:00)
[2023-04-08] MEDS: DULoxetine 60 MG CAP PO SCH (08:00)
[2023-04-08] MEDS: Famotidine 20 MG TAB PO SCH ×2 (08:00→20:06)
[2023-04-08] MEDS: Saccharomyces boulardii 250 MG CAP PO SCH (08:00)
[2023-04-09] MEDS: Acetaminophen 500 MG TAB PO SCH ×4 (00:41→17:38)
[2023-04-09] MEDS: Ipratropium/Albuterol 3 ML NEB NEB SCH ×6 (02:05→22:54)
[2023-04-09 03:41] LABS: Anion Gap 12 mmol/L (10-20); BUN (Urea Nitrogen) 24 mg/dL (9.8-20.1); Calc. Creatinine Clearance 93 mL/min (70-130); Calcium 8.6 mg/dL (7.8-10.44); Carbon Dioxide 28 mmol/L (23-31); Chloride 99 mmol/L (98-107); Estimated GFR 89; Glucose 97 mg/dL (83-110); Potassium 4.7 mmol/L (3.5-5.1); Sodium 134 mmol/L (136-145)
[2023-04-09] MEDS: Budesonide 0.5 MG/2 ML NEB INH SCH ×2 (07:25→19:36)
[2023-04-09] MEDS: Cefdinir 300 MG CAP PO SCH ×2 (08:17→20:01)
[2023-04-09] MEDS: DULoxetine 60 MG CAP PO SCH (08:18)
[2023-04-09] MEDS: Famotidine 20 MG TAB PO SCH ×2 (08:18→20:02)
[2023-04-09] MEDS: methylPREDNISolone Sod Succ 40 MG VIAL IVP SCH (08:18)
[2023-04-09] MEDS: Saccharomyces boulardii 250 MG CAP PO SCH (08:18)
[2023-04-09] MEDS: Enoxaparin 40 MG (0.4 mL) SYRINGE SC SCH (08:18)
[2023-04-10] MEDS: Acetaminophen 500 MG TAB PO SCH ×5 (00:21→20:20)
[2023-04-10] MEDS: Ipratropium/Albuterol 3 ML NEB NEB SCH ×6 (03:02→22:25)
[2023-04-10] MEDS: Budesonide 0.5 MG/2 ML NEB INH SCH ×2 (07:58→18:30)
[2023-04-10] MEDS: Famotidine 20 MG TAB PO SCH ×2 (08:09→20:20)
[2023-04-10] MEDS: DULoxetine 60 MG CAP PO SCH (08:09)
[2023-04-10] MEDS: Cefdinir 300 MG CAP PO SCH ×2 (08:10→20:20)
[2023-04-10] MEDS: predniSONE 20 MG TAB PO SCH (08:10)
[2023-04-10] MEDS: Saccharomyces boulardii 250 MG CAP PO SCH (08:10)
[2023-04-10] MEDS: Enoxaparin 40 MG (0.4 mL) SYRINGE SC SCH (08:10)
[2023-04-10] MEDS: Meclizine HCl 12.5 MG TAB PO SCH ×2 (14:38→20:20)
[2023-04-10] MEDS: Oxymetazoline HCl 0.05% (30 ML BOT) NS SCH (20:34)
[2023-04-11] MEDS: Ipratropium/Albuterol 3 ML NEB NEB SCH ×6 (02:41→23:36)
[2023-04-11] MEDS: Acetaminophen 500 MG TAB PO SCH ×3 (05:43→18:09)
[2023-04-11] MEDS: Budesonide 0.5 MG/2 ML NEB INH SCH ×2 (07:05→19:18)
[2023-04-11] MEDS: Meclizine HCl 12.5 MG TAB PO SCH ×3 (08:29→21:03)
[2023-04-11] MEDS: Saccharomyces boulardii 250 MG CAP PO SCH (08:29)
[2023-04-11] MEDS: DULoxetine 60 MG CAP PO SCH (08:29)
[2023-04-11] MEDS: Cefdinir 300 MG CAP PO SCH ×2 (08:29→21:03)
[2023-04-11] MEDS: Enoxaparin 40 MG (0.4 mL) SYRINGE SC SCH (08:29)
[2023-04-11] MEDS: Famotidine 20 MG TAB PO SCH ×2 (08:29→21:03)
[2023-04-11] MEDS: predniSONE 20 MG TAB PO SCH (08:29)
[2023-04-11] MEDS: Oxymetazoline HCl 0.05% (30 ML BOT) NS SCH ×2 (08:30→21:05)
[2023-04-12] MEDS: Acetaminophen 500 MG TAB PO SCH ×4 (00:48→17:25)
[2023-04-12] MEDS: Ipratropium/Albuterol 3 ML NEB NEB SCH ×6 (02:33→22:27)
[2023-04-12] MEDS: Budesonide 0.5 MG/2 ML NEB INH SCH ×2 (07:15→18:28)
[2023-04-12] MEDS: Famotidine 20 MG TAB PO SCH ×2 (08:34→20:28)
[2023-04-12] MEDS: Meclizine HCl 12.5 MG TAB PO SCH ×3 (08:34→20:28)
[2023-04-12] MEDS: Enoxaparin 40 MG (0.4 mL) SYRINGE SC SCH (08:34)
[2023-04-12] MEDS: DULoxetine 60 MG CAP PO SCH (08:34)
[2023-04-12] MEDS: Saccharomyces boulardii 250 MG CAP PO SCH (08:34)
[2023-04-12] MEDS: Cefdinir 300 MG CAP PO SCH (08:34)
[2023-04-12] MEDS: predniSONE 20 MG TAB PO SCH (08:34)
[2023-04-12] MEDS: Oxymetazoline HCl 0.05% (30 ML BOT) NS SCH ×2 (08:35→20:28)
[2023-04-12] MEDS ORDERED: Cefdinir 300 MG CAP PO SCH (17:00)
[2023-04-13] MEDS: Acetaminophen 500 MG TAB PO SCH ×3 (02:08→11:48)
[2023-04-13] MEDS: Ipratropium/Albuterol 3 ML NEB NEB SCH ×3 (02:15→11:55)
[2023-04-13] MEDS: Budesonide 0.5 MG/2 ML NEB INH SCH (06:40)
[2023-04-13 08:11] VITALS: BP 106/76; TEMP 97.7
[2023-04-13] MEDS: predniSONE 20 MG TAB PO SCH (08:47)
[2023-04-13] MEDS: Enoxaparin 40 MG (0.4 mL) SYRINGE SC SCH (08:47)
[2023-04-13] MEDS: DULoxetine 60 MG CAP PO SCH (08:47)
[2023-04-13] MEDS: Famotidine 20 MG TAB PO SCH (08:48)
[2023-04-13] MEDS: Saccharomyces boulardii 250 MG CAP PO SCH (08:48)
[2023-04-13] MEDS: Meclizine HCl 12.5 MG TAB PO SCH (08:48)
[2023-04-13] MEDS: Oxymetazoline HCl 0.05% (30 ML BOT) NS SCH (08:49)
== END 2023-04-13 13:20 | disposition home or self-care (01) | DRG 196 ==
LOC: ERS 09:43 → T4-A 13:22 → OBSVTOIN 04-01 08:14 → CCU 04-01 09:18 → IMCU/EMU 04-02 11:26 → T4-B 04-11 13:51
PROVIDERS: ADMIT Internal Medicine; ATTEND Family Medicine
PROC: 5A09357 Assistance with Respiratory Ventilation, Less than 24 Consecutive Hours, Continuous Positive Airway Pressure (ICD-10-PCS; principal; 2023-04-01)
PROC: 5A0955A Assistance with Respiratory Ventilation, Greater than 96 Consecutive Hours, High Flow/Velocity Cannula (ICD-10-PCS; 2023-04-01)
DX: J84.9 Interstitial pulmonary disease, unspecified (principal); I50.33 Acute on chronic diastolic (congestive) heart failure; J96.21 Acute and chronic respiratory failure with hypoxia; I27.20 Pulmonary hypertension, unspecified; K21.9 Gastro-esophageal reflux disease without esophagitis; M19.90 Unspecified osteoarthritis, unspecified site; F41.9 Anxiety disorder, unspecified; G50.0 Trigeminal neuralgia; Z96.653 Presence of artificial knee joint, bilateral; R53.81 Other malaise; E66.9 Obesity, unspecified; G89.29 Other chronic pain; J45.909 Unspecified asthma, uncomplicated; J84.10 Pulmonary fibrosis, unspecified; Z88.5 Allergy status to narcotic agent; Z91.018 Allergy to other foods; Z79.899 Other long term (current) drug therapy; Z79.2 Long term (current) use of antibiotics; Z90.49 Acquired absence of other specified parts of digestive tract; Z90.710 Acquired absence of both cervix and uterus; Z98.41 Cataract extraction status, right eye; Z98.42 Cataract extraction status, left eye; Z98.890 Other specified postprocedural states; Z11.52 Encounter for screening for COVID-19; Z68.36 Body mass index [BMI] 36.0-36.9, adult; Z87.81 Personal history of (healed) traumatic fracture
CPT/HCPCS: 36415; 71045; 71275; 80048; 80053; 81001; 83605; 83735; 83880; 84100; 84145; 84484; 85025; 85379; 87040; 93005; 94640; 94660; 94760; 96360; 96361; G0378; J0696; J1650; J1940; J2920; J3490; J7512; J7620; J7626; Q9967